=== PATIENT | male | born 1970 | race African-American/Black ===

== ENCOUNTER 2020-11-16 09:14 | Outpatient (REF) | payer OTHER, SELFPAY ==
[2020-11-16 11:41] LABS: Imm Gran Abs Auto 0.01 X10*3/uL (0.00-0.03); Imm Gran Pct Auto 0.2 % (0.0-0.4); MANUAL DIFF FLAG SCAN; PLT CLUMP 1; Red Cell Distribution Width 14.6 % (11.0-16.0); SCAN SMEAR FLAG 1
[2020-11-16 11:43] LABS: Basophils Absolute Auto 0.1 X10*3/uL (0.0-0.2); Basophils Percent Auto 2.4 % (0-2); Eosinophils Absolute Auto 0.2 X10*3/uL (0.0-0.4); Eosinophils Percent Auto 3.9 % (0-4); Hematocrit 41.4 % (42-52); Hemoglobin 13.8 g/dl (14.0-18.0); Lymphocytes Absolute Auto 2.2 X10*3/uL (1.2-4.9); Lymphocytes Percent Auto 47.2 % (20-40); Mean Corpuscular HGB Conc 33.3 g/dl (31.0-36.0); Mean Platelet Volume 9.9 fL (9.4-12.4); Monocytes Absolute Auto 0.6 X10*3/uL (0.1-1.2); Monocytes Percent Auto 12.9 % (2-11); Neutrophils Absolute Auto 1.6 X10*3/uL (2.0-8.3); Neutrophils Percent Auto 33.4 % (45-73); Platelet Count 135 X10*3/uL (160-400); Red Blood Count 4.18 X10*6/uL (4.60-5.80); White Blood Count 4.7 X10*3/uL (4.8-10.8)
[2020-11-16 12:06] LABS: Alanine Aminotransferase 41 U/L (0-40); Albumin Level 4.1 g/dL (3.5-5.0); Alkaline Phosphatase 199 U/L (39-117); Anion Gap 13 (12-20); Aspartate Amino Transferase 148 U/L (5-37); Bilirubin Direct 0.6 mg/dL (0.0-0.5); Bilirubin Total 0.8 mg/dL (0.0-1.0); Blood Urea Nitrogen 5 mg/dL (9-16); Calcium 9.3 mg/dL (8.4-10.2); Carbon Dioxide 34 mmol/L (22-29); Chloride 101 mmol/L (96-108); Cholesterol 209 mg/dL; Estimated Glomerular Filt Rate > 60; Glucose Fasting 110 mg/dL (60-99); HDL Cholesterol 44 mg/dL; LDL Cholesterol Calculated 137 mg/dl; Potassium 4.2 mmol/l (3.3-5.1); Sodium 144 mmol/L (135-145); Total Protein 8.9 g/dL (6.5-8.0); Triglycerides 140 mg/dL
[2020-11-16 12:26] LABS: TSH reflex Free T4 3.41 mIU/mL (0.32-4.0)
== END 2020-11-16 09:15 | disposition home or self-care (01) ==
LOC: HO.HMGCLDS 09:14
PROVIDERS: Visit Provider Internal Medicine
DX: Z00.01 Encounter for general adult medical examination with abnormal findings (principal); R03.0 Elevated blood-pressure reading, without diagnosis of hypertension; H93.19 Tinnitus, unspecified ear; F41.1 Generalized anxiety disorder; G47.9 Sleep disorder, unspecified
CPT/HCPCS: 36415; 80048; 80061; 80076; 84443; 85025

== ENCOUNTER 2021-02-09 02:43 | Emergency (ER) | payer OTHER, SELFPAY ==
[2021-02-09 02:54] VITALS: BP 131/86; PULSE 90; RESP 16; TEMP 37.1; O2SAT 96; BMI 25.5
--- NOTE | 2021-02-09 04:34 | ECG_ITS ---
Test Reason : ANXIETY Blood Pressure : / mmHG Vent. Rate : 077 BPM Atrial Rate : 077 BPM P-R Int : 190 ms QRS Dur : 098 ms QT Int : 434 ms P-R-T Axes : 045 -12 001 degrees QTc Int : 491 ms Normal sinus rhythm Septal infarct , age undetermined Inferior infarct , age undetermined Abnormal ECG No previous ECGs available Referred By: Joyce Salinas Electronically Signed By:STIVEN RESTREPO MD
--- NOTE | 2021-02-09 04:37 | ED.GENADULT ---
HPI - General Adult General Chief complaint: Anxiety Stated complaint: Panic attack Time Seen by Provider: 02/09/21 04:34 History of Present Illness HPI narrative: Patient is a 50-year-old male with a sudden Amina wanting to destroy things. Denies any suicidal homicidal ideation. Denies any chest pain. No cough no congestion or upper respiratory symptoms. No diaphoresis. No change in weight. Patient a lot of stressors in life. Patient denies any recreational drug use. Has a previous history of alcohol abuse. Patient claims to stop. His complained that he swallow Listerine when he rinses his mouth. There has been no change in sleep. Patient has been losing weight. No diaphoresis Related Data Home Medications Medication Instructions Recorded Confirmed diphenhydramine HCl 25 mg capsule 25 mg PO BEDTIME 11/16/20 Previous Rx's Medication Instructions Recorded lorazepam [Ativan] 1 mg PO TID PRN #7 tab 02/09/21 ondansetron 4 mg PO TID PRN 5 Days #10 tab 02/09/21 Allergies Allergy/AdvReac Type Severity Reaction Status Date / Time bee pollen [BEE POLLEN] Allergy Unknown ANAPHYLAXIS Verified 02/09/21 02:53 Review of Systems Review of Systems: Constitutional: No Weight loss, No Fever, No Chills, No Night Sweats, No Fatigue, No Malaise ENT/Mouth: No Hearing loss, No Ear Pain, No Nasal Congestion, No Sinus Pain, No Hoarseness, No sore throat, No Rhinorrhea, No Swallowing Difficulty Eyes: No Eye Pain, No Swelling, No Redness, No Foreign Body, No Discharge, No Vision Changes Cardiovascular: Positive shortness of breath Respiratory: No Cough, No Sputum, No Wheezing, No Smoke Exposure, No Dyspnea Gastrointestinal: No Nausea, No Vomiting, No Diarrhea, No Constipation, No abdominal Pain, No Hematochezia, No Melena Genitourinary: no irregular bleeding, No Dysuria, No Urinary Frequency, No Hematuria, No Urinary Incontinence, No Urgency, No Flank Pain, No Urinary Flow Changes, No Hesitancy Musculoskeletal: No joint pain, No Myalgias, No Joint Swelling Skin: No Skin Lesions, No rash Neuro: No Weakness, No Numbness, No Paresthesias, No Loss of Consciousness, No Dizziness, No Headache Psych: No Anxiety/Panic, No Depression, No SI/HI/AH/VH, No Social Issues, Heme/Lymph: No Bruising, No Bleeding,No Lymphadenopathy Endocrine: No Polyuria, No Polydipsia, No Temperature Intolerance [facility] Past Medical History Attestation statement: The following information was validated with the patient. Medical History Anxiety, generalized Difficulty sleeping Encounter for general adult medical examination with abnormal findings Meningitis spinal Prehypertension Tinnitus Family History Family History Brother Heart attack Social History Social History Alcohol intake: current Alcohol intake frequency: a few times a month Advance Directives: No Physical Exam Vital Signs: Vital Signs: Last Vital Signs Temp 98.7 F 02/09/21 02:54 Pulse 90 02/09/21 02:54 Resp 16 02/09/21 02:54 BP 131/86 02/09/21 02:54 Pulse Ox 96 02/09/21 02:54 Body Mass Index 25.5 Appearance: Alert. Oriented X3. No acute distress. Eyes: Pupils equal, round and reactive to light. ENT: Pharynx normal. Neck: Normal inspection. Neck supple. No lymph nodes noted. No crepitus CVS: Normal heart rate and rhythm. Pulses normal. Normal S1 and S2 Respiratory: No respiratory distress. Breath sounds normal. No Wheezing. No rales Abdomen: Soft and nontender. No rigidity. No distention. good BS x4 Skin: Skin warm and dry. Normal skin color. Normal skin turgor. Extremities: No lower extremity edema. Neurovascular intact to all extremities. No Lacerations. No Rash Neuro: Oriented X 3. No motor deficit. No sensory deficit. Moving all extermities. No slurred speech Medical Decision Making MDM Narrative Medical decision making narrative: Labs was sent on patient. Patient's ETOH came back at 366. Likely the cause of patient change in behavior and also smell of Listerine. Patient states he wants detox and he wants to go home with family. A list of detox will be provided to him. Zofran for nausea. Ativan for withdrawal symptoms. Patient is currently in stable condition. Family will take him home. Patient's liver enzymes are elevated. Likely related to alcohol as well. Patient most likely has a long history of alcohol use. Lab Data Result diagrams: 02/09/21 04:54 02/09/21 04:54 Labs: Lab Results 02/09/21 02/09/21 02/09/21 Range/Units 04:54 04:54 04:54 WBC 5.1 (4.8-10.8) X10*3/uL RBC 4.25 L (4.60-5.80) X10*6/uL Hgb 14.0 (14.0-18.0) g/dl Hct 41.6 L (42-52) % MCV 97.9 (80-98) fL MCH 32.9 (27.0-33.0) pg MCHC 33.7 (31.0-36.0) g/dl RDW 15.8 (11.0-16.0) % Plt Count 81 L D (160-400) X10*3/uL MPV 10.3 (9.4-12.4) fL Immature Gran % (Auto) 0.0 (0.0-0.4) % Neut % (Auto) 41.1 L (45-73) % Lymph % (Auto) 47.1 H (20-40) % [place] % (Auto) 8.8 (2-11) % Eos % (Auto) 0.8 (0-4) % Baso % (Auto) 2.2 H (0-2) % Lymph # (Auto) 2.4 (1.2-4.9) X10*3/uL [place] # (Auto) 0.5 (0.1-1.2) X10*3/uL Eos # (Auto) 0.0 (0.0-0.4) X10*3/uL Baso # (Auto) 0.1 (0.0-0.2) X10*3/uL Abs Immat Gran (auto) 0.00 (0.00-0.03) X10*3/uL Absolute Neuts (auto) 2.1 (2.0-8.3) X10*3/uL Absolute Nucleated RBC 0.000 (0.0-0.012) X10*3/uL Nucleated RBC % (auto) 0.0 (0.0-0.2) /100WBC PT 17.7 H (10.8-13.0) SEC INR 1.5 H (0.9-1.1) Sodium 146 H (135-145) mmol/L Potassium 3.4 (3.3-5.1) mmol/L Chloride 105 (96-108) mmol/L Carbon Dioxide 26 (22-29) mmol/L Anion Gap 18 (12-20) BUN 8 L D (9-16) mg/dL Creatinine 0.80 (0.5-1.4) mg/dL Estim Creat Clear Calc 114.0 Estimated GFR > 60 Random Glucose 99 (60-115) mg/dL Calcium 8.7 D (8.4-10.2) mg/dL Total Bilirubin 1.2 H (0.0-1.0) mg/dL Direct Bilirubin 0.8 H (0.0-0.5) mg/dL AST 201 H (5-37) U/L ALT 46 H (0-40) U/L Alkaline Phosphatase 173 H (39-117) U/L Total Protein 8.7 H (6.5-8.0) g/dL Albumin 3.8 (3.5-5.0) g/dL TSH 2.50 (0.32-4.0) uIU/mL Urine Opiates Screen (Not Detect) Ur Barbiturates Screen (Not Detect) Ur Phencyclidine Scrn (Not Detect) Ur Amphetamines Screen (Not Detect) U Benzodiazepines Scrn (Not Detect) Urine Cocaine Screen (Not Detect) U Marijuana (THC) Screen (Not Detect) Ethyl Alcohol mg/dL 02/09/21 02/09/21 Range/Units 04:54 05:10 WBC (4.8-10.8) X10*3/uL RBC (4.60-5.80) X10*6/uL Hgb (14.0-18.0) g/dl Hct (42-52) % MCV (80-98) fL MCH (27.0-33.0) pg MCHC (31.0-36.0) g/dl RDW (11.0-16.0) % Plt Count (160-400) X10*3/uL MPV (9.4-12.4) fL Immature Gran % (Auto) (0.0-0.4) % Neut % (Auto) (45-73) % Lymph % (Auto) (20-40) % [place] % (Auto) (2-11) % Eos % (Auto) (0-4) % Baso % (Auto) (0-2) % Lymph # (Auto) (1.2-4.9) X10*3/uL [place] # (Auto) (0.1-1.2) X10*3/uL Eos # (Auto) (0.0-0.4) X10*3/uL Baso # (Auto) (0.0-0.2) X10*3/uL Abs Immat Gran (auto) (0.00-0.03) X10*3/uL Absolute Neuts (auto) (2.0-8.3) X10*3/uL Absolute Nucleated RBC (0.0-0.012) X10*3/uL Nucleated RBC % (auto) (0.0-0.2) /100WBC PT (10.8-13.0) SEC INR (0.9-1.1) Sodium (135-145) mmol/L Potassium (3.3-5.1) mmol/L Chloride (96-108) mmol/L Carbon Dioxide (22-29) mmol/L Anion Gap (12-20) BUN (9-16) mg/dL Creatinine (0.5-1.4) mg/dL Estim Creat Clear Calc Estimated GFR Random Glucose (60-115) mg/dL Calcium (8.4-10.2) mg/dL Total Bilirubin (0.0-1.0) mg/dL Direct Bilirubin (0.0-0.5) mg/dL AST (5-37) U/L ALT (0-40) U/L Alkaline Phosphatase (39-117) U/L Total Protein (6.5-8.0) g/dL Albumin (3.5-5.0) g/dL TSH (0.32-4.0) uIU/mL Urine Opiates Screen Not Detected (Not Detect) Ur Barbiturates Screen Not Detected (Not Detect) Ur Phencyclidine Scrn Not Detected (Not Detect) Ur Amphetamines Screen Not Detected (Not Detect) U Benzodiazepines Scrn Not Detected (Not Detect) Urine Cocaine Screen Not Detected (Not Detect) U Marijuana (THC) Screen Not Detected (Not Detect) Ethyl Alcohol 366 H* mg/dL Discharge Plan Discharge Clinical Impression: Alcohol intoxication Patient Disposition: Home, Self-Care Instructions: Alcohol Intoxication (ED) Prescriptions: New ondansetron 4 mg tablet,disintegrating 4 mg PO TID PRN (Reason: nausea and vomiting) 5 Days Qty: 10 RF: 0 lorazepam [Ativan] 1 mg tablet 1 mg PO TID PRN (Reason: alcohol withdrawal) Qty: 7 RF: 0 No Action diphenhydramine HCl [ZzzQuil] 25 mg capsule 25 mg PO BEDTIME RF: 0 Referrals: Physician,Unknown [Primary Care Provider] - 2 days (Please go to detox as soon as possible a list of detox will be provided to you.)
[2021-02-09 04:59] LABS: MANUAL DIFF FLAG NO; Neutrophils Absolute Auto 2.1 X10*3/uL (2.0-8.3); PLT CLUMP 1; SCAN SMEAR FLAG 1
[2021-02-09 05:01] LABS: Basophils Absolute Auto 0.1 X10*3/uL (0.0-0.2); Basophils Percent Auto 2.2 % (0-2); Eosinophils Percent Auto 0.8 % (0-4); Hematocrit 41.6 % (42-52); Lymphocytes Absolute Auto 2.4 X10*3/uL (1.2-4.9); Lymphocytes Percent Auto 47.1 % (20-40); Mean Corpuscular HGB Conc 33.7 g/dl (31.0-36.0); Mean Corpuscular Hemoglobin 32.9 pg (27.0-33.0); Mean Corpuscular Volume 97.9 fL (80-98); Mean Platelet Volume 10.3 fL (9.4-12.4); Monocytes Absolute Auto 0.5 X10*3/uL (0.1-1.2); Monocytes Percent Auto 8.8 % (2-11); Neutrophils Percent Auto 41.1 % (45-73); Red Blood Count 4.25 X10*6/uL (4.60-5.80); Red Cell Distribution Width 15.8 % (11.0-16.0); White Blood Count 5.1 X10*3/uL (4.8-10.8)
[2021-02-09 05:03] LABS: Platelet Count 81 X10*3/uL (160-400)
[2021-02-09 05:04] LABS: INTERNATIONAL NORM RATIO 1.5 (0.9-1.1); Prothrombin Time 17.7 SEC (10.8-13.0)
[2021-02-09 05:34] LABS: Ethanol 366 mg/dL
[2021-02-09 05:38] LABS: Alanine Aminotransferase 46 U/L (0-40); Albumin Level 3.8 g/dL (3.5-5.0); Alkaline Phosphatase 173 U/L (39-117); Anion Gap 18 (12-20); Aspartate Amino Transferase 201 U/L (5-37); Bilirubin Direct 0.8 mg/dL (0.0-0.5); Bilirubin Total 1.2 mg/dL (0.0-1.0); Blood Urea Nitrogen 8 mg/dL (9-16); Calcium 8.7 mg/dL (8.4-10.2); Carbon Dioxide 26 mmol/L (22-29); Chloride 105 mmol/L (96-108); Estimated Glomerular Filt Rate > 60; Glucose Random 99 mg/dL (60-115); Potassium 3.4 mmol/L (3.3-5.1); Sodium 146 mmol/L (135-145); Total Protein 8.7 g/dL (6.5-8.0)
[2021-02-09] MEDS: 0.9 % Sodium Chloride 1,000 ML 999 ML IV (05:52)
[2021-02-09 05:56] LABS: Amphetamine Screen Urine Not Detected (Not Detect); Barbiturates, Urine Not Detected (Not Detect); Benzodiazepines Screen Urine Not Detected (Not Detect); Cannabinoid Screen Urine Not Detected (Not Detect); Cocaine Screen Urine Not Detected (Not Detect); Opiate Screen Urine Not Detected (Not Detect); Phencyclidine Screen Urine Not Detected (Not Detect)
[2021-02-09 06:37] VITALS: BP 139/93; PULSE 75; RESP 16; O2SAT 95
== END 2021-02-09 06:59 | disposition home or self-care (01) ==
PROVIDERS: Emergency Provider Emergency Medicine Emergency Medical Services
DX: F10.120 Alcohol abuse with intoxication, uncomplicated (principal); Y90.8 Blood alcohol level of 240 mg/100 ml or more; F41.9 Anxiety disorder, unspecified
CPT/HCPCS: 36415; 80048; 80076; 80307; 80320; 84443; 85025; 85610; 93005; 96360; 99283; 99284

== ENCOUNTER 2021-02-12 20:02 | Inpatient (IN) | payer OTHER, SELFPAY ==
--- NOTE | ~2021-02-12 | CT_ITS ---
EXAMINATION: CT ABDOMEN AND PELVIS WITH CONTRAST CLINICAL INFORMATION: Hematuria COMPARISON: None TECHNIQUE: Multidetector volumetric images were obtained from the superior aspect of the liver through the pubic symphysis following administration 85 mL of Omnipaque 350 intravenous contrast. Sagittal and coronal reformatted images were obtained on the technologist's workstation. Oral contrast: No This CT examination was performed using dose optimization techniques as appropriate, variously including the following: *Automated exposure control *Adjustment of mA and/or kV according to patient size (this includes techniques or standardized protocols for targeted exams where dose is matched to indication/reason for exam; i.e. extremities or head) *Use of iterative reconstruction technique DLP: 832 mGy-cm FINDINGS: LUNG BASES: Bibasilar dependent subsegmental atelectasis. LIVER, GALLBLADDER, AND BILIARY TREE: The liver is normal in size, shape, and attenuation. No focal hepatic lesion or biliary ductal dilatation is present. Gallbladder unremarkable. PANCREAS: Unremarkable. SPLEEN: Unremarkable. ADRENAL GLANDS: Unremarkable. KIDNEYS AND URETERS: The kidneys are normal in size, shape, and attenuation. No hydronephrosis, hydroureter, or calculi seen. No perinephric stranding. BLADDER: Unremarkable. GASTROINTESTINAL TRACT: There is submucosal edema and pericolic fat stranding involving the cecum and ascending colon. There is mild prominence of the appendix, particularly near the origin were measures up to 1.5 cm. ABDOMINAL WALL: No significant hernia is appreciated. LYMPH NODES: Normal. VASCULAR: Aorta is atherosclerotic but normal caliber. Patent venous structures. PELVIC VISCERA: Unremarkable. OSSEOUS STRUCTURES: No acute or suspicious osseous abnormalities. CT/CT abdomen pelvis w con IMPRESSION: There is submucosal edema and pericolic fat stranding involving the cecum and ascending colon suspicious for colitis. There is mild thickening of the appendix, particularly near the base favored to be secondary to the cecal/colonic inflammation as opposed to representing appendicitis.
--- NOTE | ~2021-02-12 | CT_ITS ---
EXAMINATION: CT HEAD WITHOUT CONTRAST CLINICAL INFORMATION: Altered mental status COMPARISON: None TECHNIQUE: Contiguous axial imaging was performed from the skull base to vertex without intravenous administration of contrast. This CT examination was performed using dose optimization techniques as appropriate, variously including the following: *Automated exposure control *Adjustment of mA and/or kV according to patient size (this includes techniques or standardized protocols for targeted exams where dose is matched to indication/reason for exam; i.e. extremities or head) *Use of iterative reconstruction technique DLP: 760 mGy-cm FINDINGS: There is no evidence of acute intracranial hemorrhage or territorial infarction. No abnormal mass effect or midline shift is seen. [place] to white matter differentiation is well preserved. No extra-axial fluid collections are identified. The ventricles are normal in size. There is no abnormal attenuation within the brain parenchyma. The osseous structures and soft tissues are normal. Mild mucosal thickening present throughout the ethmoid air cells. Chronic appearing partially imaged right nasal bone fractures. CT/CT head/brain wo con IMPRESSION: No acute intracranial pathology.
[2021-02-12 20:10] VITALS: BP 116/82; BP 127/83; PULSE 112; PULSE 121; RESP 16; TEMP 37.6; O2SAT 97; O2SAT 99; BMI 26.4
[2021-02-12 20:29] VITALS: PULSE 112
--- NOTE | 2021-02-12 21:26 | PC.NURSE ---
Pt OOB, wandering around the ED, asking for Security to take him downtown also asking to be put in a holding cell . Pt then stating what kind of dare is this, I don't work in the medical field Pt fully clothed, took off tele leads, changed back over into heraclio and re-oriented to place. Awaiting primary eval at this time.
--- NOTE | 2021-02-12 21:57 | PC.NURSE ---
MD in to bedside for eval, plan for IV, labs, and fluids.
--- NOTE | 2021-02-12 21:58 | ED.MALEGU ---
HPI - Male Genitourinary General Chief complaint: Urogenital-Male Stated complaint: bleeding Time Seen by Provider: 02/12/21 21:44 Source: patient Mode of arrival: EMS History of Present Illness HPI Narrative: This is a 50-year-old male who is brought in by EMS from [place] where he is currently being treated for alcohol detox. His last drink was Monday and he received 2 mg of Ativan at [place] at 6:45 p.m.. Patient is a questionable historian stating that he has been out of the house for 2 nights as he and his like to play a game to keep things interesting where he stays out of the house for 4 nights and then she stays out of the house for 4 nights. Patient also states that he has had some visual hallucinations on . As for the blood in the urine patient states that it comes and goes but today there is obvious red blood coming from his penis. Otherwise, he denies any urinary pain/burning/frequency and denies any shortness of breath or chest pain/palpitations. Related Data Home Medications Medication Instructions Recorded Confirmed diphenhydramine HCl 25 mg capsule 25 mg PO BEDTIME 11/16/20 Previous Rx's Medication Instructions Recorded lorazepam [Ativan] 1 mg PO TID PRN 3 Days #7 tab 02/09/21 ondansetron 4 mg PO TID PRN 5 Days #10 tab 02/09/21 Allergies Allergy/AdvReac Type Severity Reaction Status Date / Time bee pollen [BEE POLLEN] Allergy Unknown ANAPHYLAXIS Verified 02/09/21 02:53 Review of Systems Review of Systems: Pertinent positives and negatives as stated in HPI 10 point review of systems is otherwise negative. [facility] Past Medical History Source: nursing notes reviewed Medical History Anxiety, generalized Difficulty sleeping Encounter for general adult medical examination with abnormal findings Meningitis spinal Prehypertension Tinnitus Family History Family History Brother Heart attack Social History Social History Alcohol intake: current Alcohol intake frequency: a few times a month Advance Directives: No Advance Directives Information Provided: Yes Physical Exam Vital Signs: Vital Signs: Last Vital Signs Temp 99.7 F 02/12/21 20:10 Pulse 93 02/13/21 04:28 Resp 18 02/13/21 04:28 BP 129/81 02/13/21 04:28 Pulse Ox 99 02/13/21 04:28 Body Mass Index 26.4 VITAL SIGNS: Reviewed. GENERAL: Well developed, well nourished, in no acute distress. HEAD: Normocephalic/atraumatic, EYES: PERRLA, EOMI intact without pain, no nystagmus EARS: Ext canals without abnormality OROPHARYNX: no oral lesions noted, posterior pharynx clear NECK: Supple, no adenopathy LUNGS: Normal breath sounds. SpO2<97> CARDIOVASCULAR: Regular rate and rhythm without noted murmurs ABDOMEN: Soft, non-tender, non-distended with bowel sounds. NEUROLOGIC: Alert and oriented x 4. Strength and sensation to light touch were grossly intact x 4, bilateral tremulousness in upper extremities secondary to alcohol detox. Course Course Course Narrative: This is a 50-year-old male with history and clinical presentation consistent with alcohol detox and will evaluate for hematuria but likely patient will be referred for further evaluation by Urology. Throughout patient's course he was clearly altered, easily agitated and had to be treated with multiple rounds of Ativan and Librium. Review of all investigations without acute findings to suggest infectious etiology and evaluation of hematuria it does demonstrate mild hematuria with RBCs less than 100. CT scan of the head does not show any acute findings and CT scan of the abdomen pelvis for further evaluation of kidneys and bladder demonstrates incidental finding of colitis. Case discussed with inpatient hospitalist who is agreeable for admission for alcohol withdrawal. MDM - Male Genitourinary Lab Data Result diagrams: 02/12/21 22:13 02/12/21 22:13 Labs: Lab Results 02/12/21 02/12/21 02/12/21 Range/Units 22:13 22:13 23:17 WBC 5.8 (4.8-10.8) X10*3/uL RBC 4.26 L (4.60-5.80) X10*6/uL Hgb 14.2 (14.0-18.0) g/dl Hct 41.0 L (42-52) % MCV 96.2 (80-98) fL MCH 33.3 H (27.0-33.0) pg MCHC 34.6 (31.0-36.0) g/dl RDW 14.4 (11.0-16.0) % Plt Count 62 L (160-400) X10*3/uL MPV 11.7 (9.4-12.4) fL Immature Gran % (Auto) 0.2 (0.0-0.4) % Neut % (Auto) 59.7 (45-73) % Lymph % (Auto) 24.1 (20-40) % [place] % (Auto) 14.8 H (2-11) % Eos % (Auto) 0.5 (0-4) % Baso % (Auto) 0.7 (0-2) % Lymph # (Auto) 1.4 (1.2-4.9) X10*3/uL [place] # (Auto) 0.9 (0.1-1.2) X10*3/uL Eos # (Auto) 0.0 (0.0-0.4) X10*3/uL Baso # (Auto) 0.0 (0.0-0.2) X10*3/uL Abs Immat Gran (auto) 0.01 (0.00-0.03) X10*3/uL Absolute Neuts (auto) 3.4 (2.0-8.3) X10*3/uL Absolute Nucleated RBC 0.000 (0.0-0.012) X10*3/uL Nucleated RBC % (auto) 0.0 (0.0-0.2) /100WBC Smear Tech's Comments VERIFIED Sodium 134 L (135-145) mmol/L Potassium 3.5 (3.3-5.1) mmol/L Chloride 92 L (96-108) mmol/L Carbon Dioxide 29 (22-29) mmol/L Anion Gap 17 (12-20) BUN 15 D (9-16) mg/dL Creatinine 1.04 (0.5-1.4) mg/dL Estim Creat Clear Calc 87.7 Estimated GFR > 60 Random Glucose 121 H (60-115) mg/dL Calcium 9.3 D (8.4-10.2) mg/dL Total Bilirubin 2.9 H (0.0-1.0) mg/dL AST 147 H (5-37) U/L ALT 41 H (0-40) U/L Alkaline Phosphatase 152 H (39-117) U/L Total Protein 9.0 H (6.5-8.0) g/dL Albumin 4.0 (3.5-5.0) g/dL Lipase 56 (8-78) U/L Urine Color YELLOW Urine Appearance CLEAR Urine pH 6.5 (5.0-8.0) Ur Specific [place] 1.010 (1.005-1.025) Urine Protein 1+ H (NEG-TRACE) MG/DL Urine Glucose (UA) NEG (NEG) MG/DL Urine Ketones NEG (NEG) MG/DL Urine Blood 3+ H (NEG) Urine Nitrite NEG (NEG) Ur Leukocyte Esterase TRACE H (NEG) Urine RBC 30-49 H (0) /HPF Urine WBC 1-4 (0-4) /HPF Ur Squamous Epith Cells NONE /LPF Urine Bacteria NONE /LPF Discharge Plan Discharge Clinical Impression: Alcohol withdrawal delirium, Hematuria, Colitis Patient Disposition: Admitted As Inpatient
[2021-02-12] MEDS: 0.9 % Sodium Chloride 2,000 ML 999 ML IV (22:18)
[2021-02-12] MEDS: chlordiazePOXIDE HCl 25 MG CAPSULE PO (22:19)
[2021-02-12 22:21] LABS: Hemoglobin 14.2 g/dl (14.0-18.0); Imm Gran Abs Auto 0.01 X10*3/uL (0.00-0.03); Imm Gran Pct Auto 0.2 % (0.0-0.4); MANUAL DIFF FLAG SCAN; PLT CLUMP 1; SCAN SMEAR FLAG 1
[2021-02-12 22:23] LABS: Basophils Percent Auto 0.7 % (0-2); Eosinophils Percent Auto 0.5 % (0-4); Lymphocytes Absolute Auto 1.4 X10*3/uL (1.2-4.9); Lymphocytes Percent Auto 24.1 % (20-40); Mean Corpuscular HGB Conc 34.6 g/dl (31.0-36.0); Mean Corpuscular Hemoglobin 33.3 pg (27.0-33.0); Mean Corpuscular Volume 96.2 fL (80-98); Mean Platelet Volume 11.7 fL (9.4-12.4); Monocytes Absolute Auto 0.9 X10*3/uL (0.1-1.2); Monocytes Percent Auto 14.8 % (2-11); Neutrophils Absolute Auto 3.4 X10*3/uL (2.0-8.3); Neutrophils Percent Auto 59.7 % (45-73); Red Blood Count 4.26 X10*6/uL (4.60-5.80); Red Cell Distribution Width 14.4 % (11.0-16.0); White Blood Count 5.8 X10*3/uL (4.8-10.8)
[2021-02-12 22:25] LABS: Platelet Count 62 X10*3/uL (160-400)
--- NOTE | 2021-02-12 22:26 | PC.NURSE ---
20g IV established to left forearm. Labs drawn and sent, pt medicated with 25 mg of librium. 7 on the CIWA scale. 1 of 2 liters of NS hung and running WO. Call gold provided to pt, this RN reinforced with pt to not get out of bed without assistance.
[2021-02-12 22:40] LABS: SLIDE REVIEW VERIFIED
[2021-02-12 23:01] LABS: Alanine Aminotransferase 41 U/L (0-40); Alkaline Phosphatase 152 U/L (39-117); Anion Gap 17 (12-20); Aspartate Amino Transferase 147 U/L (5-37); Bilirubin Total 2.9 mg/dL (0.0-1.0); Blood Urea Nitrogen 15 mg/dL (9-16); Calcium 9.3 mg/dL (8.4-10.2); Carbon Dioxide 29 mmol/L (22-29); Chloride 92 mmol/L (96-108); Creatinine Clr Calc Pharmacy 87.7; Estimated Glomerular Filt Rate > 60; Glucose Random 121 mg/dL (60-115); Potassium 3.5 mmol/L (3.3-5.1); Sodium 134 mmol/L (135-145)
[2021-02-12 23:04] VITALS: PULSE 93; O2SAT 99
[2021-02-12 23:34] LABS: Glucose Urine UA NEG (NEG); Leukocyte Esterase Urine TRACE (NEG); Nitrite Urine NEG (NEG); PH 6.5 (5.0-8.0); UACC Culture Trigger YES; Urine Blood 3+ (NEG); Urine Ketones NEG (NEG); Urine Protein 1+ MG/DL (NEG-TRACE)
[2021-02-12 23:36] LABS: Appearance Urine CLEAR; Color Urine YELLOW
[2021-02-12 23:37] LABS: Lipase 56 U/L (8-78)
[2021-02-12] MEDS: LORazepam 2 MG/ML VIAL 1 MG IVPUSH (23:39)
[2021-02-12 23:47] LABS: RBC Urine 30-49 /HPF (0)
[2021-02-13] VITALS (8 sets, daily range): BP systolic 117–150; BP diastolic 74–87; PULSE 65–93; RESP 16–20; TEMP 36.4–37; O2SAT 96–99
[2021-02-13] MEDS: LORazepam 2 MG/ML VIAL 1 MG IVPUSH (00:14)
--- NOTE | 2021-02-13 00:14 | PC.NURSE ---
This RN received report at 2300- prior nurse stated that the patient ripped out his IV and had been restless in the room, wanting to leave. This RN tried to reason with patient but was unable to, patient not alert and oriented to situation, unsteady on his feet and resistant to treatment. Multiple attempts by multiple staff were made to educate the patient and attempt to redirect him into the room but were not successful. Security called to the bedside and Ray MCCALLUM also at the bedside to attempt to deescalate the patients behavior. Patient still resistant to care despite being educated about the risks of alcohol withdrawal and the inability of the patient to make rational decisions and choices given his current state. Provider made aware and, given the patients reasoning for visit to the ER, recommending imaging with contrast so new IV to be placed. In addition to this, the ED provider ordered 1mg Ativan to help with the patients escalating behavior. New 20G IV placed in the patients left arm and 1mg Ativan administered. Patient was at this point moved to the hallway to be monitored by staff and security. Once again, the patient removed his IV and a new 20g was once again placed into this right ac with an additional 1mg Ativan administered. At this time, security is still at the bedside- patient requiring frequent redirection and still uncooperative with care. ED provider aware, awaiting imaging.
[2021-02-13] MEDS: LORazepam 2 MG/ML VIAL IVPUSH (01:42)
[2021-02-13] MEDS: iohexoL 350 MG/ML 100 ML INFUS..BTL 85 ML IV (04:16)
[2021-02-13 06:10] LABS: COVID-19 Test Negative (Negative)
--- NOTE | 2021-02-13 06:36 | PM.IMHP ---
History of Present Illness Date of Service: 02/13/21 Chief Complaint: Alcohol withdrawal This is a 50-year-old male with past medical history of alcohol abuse, anxiety, who presents to the hospital with complaints of alcohol withdrawal as well as hematuria. Patient was currently being managed for alcohol detox at [facility] but they sent him to the hospital due to hematuria. Patient was in active withdrawal in the hospital and patient was given Librium as well as multiple doses of Ativan. Patient currently very somnolent, arousable to painful stimuli but unable to give much history. According to ED physician patient's last drink was Monday, he has been experiencing visual hallucinations, he appears to be making up stories with the ED physician, and there is concern for Wernicke's encephalopathy I am unable to his other systems as patient is too somnolent to answer No significant abnormal vitals except for heart rate of 121. Has a temp of 99.7?, respiratory rate of 16, blood pressure 127/83, satting 97% on room air Labs are significant for WBC count of 5.8, hemoglobin of 14.2, hematocrit 41%, sodium of 134, potassium 3.5, total bili of 2.9, AST of 147, ALT of 41, alk-phos of 152, total protein of 9.0, UA positive for blood as well as leukocyte Estrace and some WBC, Head CT demonstrates no acute intracranial pathology Abdominal CT shows submucosal edema and [place] colic fat stranding involving the cecum and ascending colon suspicious for colitis. Mild thickening of the appendix fever to be secondary to the cecal colonic inflammation as opposed to representing appendicitis Past medical history as EMR Review of Systems Review of Systems: Yes Unobtainable due to mental status [facility] Medical History Anxiety, generalized Difficulty sleeping Encounter for general adult medical examination with abnormal findings Meningitis spinal Prehypertension Tinnitus Family History Brother Heart attack Social History Alcohol intake: current Alcohol intake frequency: a few times a month Advance Directives: No Advance Directives Information Provided: Yes Meds Allergies Allergy/AdvReac Type Severity Reaction Status Date / Time bee pollen [BEE POLLEN] Allergy Unknown ANAPHYLAXIS Verified 02/09/21 02:53 Home Medications Medication Instructions Recorded Confirmed Last Taken Type diphenhydramine HCl 25 mg capsule 25 mg PO BEDTIME 11/16/20 Unknown History Physical Exam Vital Signs and Narrative: Vital Signs: Last Vital Signs Temp 99.7 F 02/12/21 20:10 Pulse 93 02/13/21 04:28 Resp 18 02/13/21 04:28 BP 129/81 02/13/21 04:28 Pulse Ox 99 02/13/21 04:28 Body Mass Index 26.4 Const: General: patient obtunded Orientation/consciousness: patient obtunded Eyes: General: appearance normal, both eyes and all related structures Resp: Effort & Inspection: normal respiratory effort Cardio: Rate: regular rate Rhythm: regular rhythm GI: Palpation (GI): Soft to palpation Auscultation: normal bowel sounds Skin: General skin exam: no rashes or lesions noted Neuro: General: patient obtunded Cognition (Neuro): normal cognition Extrem: General: Yes normal to inspection and Yes no pedal edema Results Labs CBC and Chem 7: 02/12/21 22:13 02/12/21 22:13 Labs: Laboratory Results - last 24 hr 02/12/21 02/12/21 02/12/21 22:13 22:13 23:17 MCV 96.2 MCH 33.3 H MCHC 34.6 RDW 14.4 Plt Count 62 L MPV 11.7 Immature Gran % (Auto) 0.2 Neut % (Auto) 59.7 Lymph % (Auto) 24.1 [place] % (Auto) 14.8 H Eos % (Auto) 0.5 Baso % (Auto) 0.7 Lymph # (Auto) 1.4 [place] # (Auto) 0.9 Eos # (Auto) 0.0 Baso # (Auto) 0.0 Abs Immat Gran (auto) 0.01 Absolute Neuts (auto) 3.4 Absolute Nucleated RBC 0.000 Nucleated RBC % (auto) 0.0 Smear Tech's Comments VERIFIED Anion Gap 17 Estim Creat Clear Calc 87.7 Estimated GFR > 60 Random Glucose 121 H Calcium 9.3 D Total Bilirubin 2.9 H AST 147 H ALT 41 H Alkaline Phosphatase 152 H Total Protein 9.0 H Albumin 4.0 Lipase 56 Urine Color YELLOW Urine Appearance CLEAR Urine pH 6.5 Ur Specific [place] 1.010 Urine Protein 1+ H Urine Glucose (UA) NEG Urine Ketones NEG Urine Blood 3+ H Urine Nitrite NEG Ur Leukocyte Esterase TRACE H Urine RBC 30-49 H Urine WBC 1-4 Ur Squamous Epith Cells NONE Urine Bacteria NONE COVID-19 (ERIKA) COVID-19 Clin Com 02/13/21 05:48 MCV MCH MCHC RDW Plt Count MPV Immature Gran % (Auto) Neut % (Auto) Lymph % (Auto) [place] % (Auto) Eos % (Auto) Baso % (Auto) Lymph # (Auto) [place] # (Auto) Eos # (Auto) Baso # (Auto) Abs Immat Gran (auto) Absolute Neuts (auto) Absolute Nucleated RBC Nucleated RBC % (auto) Smear Tech's Comments Anion Gap Estim Creat Clear Calc Estimated GFR Random Glucose Calcium Total Bilirubin AST ALT Alkaline Phosphatase Total Protein Albumin Lipase Urine Color Urine Appearance Urine pH Ur Specific [place] Urine Protein Urine Glucose (UA) Urine Ketones Urine Blood Urine Nitrite Ur Leukocyte Esterase Urine RBC Urine WBC Ur Squamous Epith Cells Urine Bacteria COVID-19 (ERIKA) Negative COVID-19 Clin Com See Note Imaging Radiologist's Impressions: Impressions Abdomen/Pelvis CT 02/13/21 00:05 IMPRESSION: There is submucosal edema and pericolic fat stranding involving the cecum and ascending colon suspicious for colitis. There is mild thickening of the appendix, particularly near the base favored to be secondary to the cecal/colonic inflammation as opposed to representing appendicitis. Head CT 02/13/21 03:14 IMPRESSION: No acute intracranial pathology. Assessment and Plan (1) Alcohol withdrawal delirium: Status: Acute (2) Hematuria: Status: Acute (3) Colitis: Status: Acute (4) UTI (urinary tract infection): Status: Acute 50-year-old male with past medical history of alcohol abuse, presents to the hospital in alcohol withdrawal as well as complaints of hematuria # alcohol abuse with withdrawal - patient active withdrawal, hallucinating, possible component of Wernicke encephalopathy - will start patient on phenobarb protocol - out of abundance of precaution will start him on thiamine 500 mg IV - folic acid supplement - monitor mental status # hematuria - likely secondary to UTI - stable H&H - will consult Urology # UTI - has leukocyte Estrace as well as some WBC - will start him on IV antibiotics - follow cultures # colitis - nontoxic, afebrile, no leukocytosis - ceftriaxone for a TIA should cover if bacteria DVT prophylaxis: early mbulation in the settin gof hematuria
[2021-02-13] MEDS: 0.9 % Sodium Chloride 1,000 ML 100 ML IVCONT ×2 (08:30→19:50)
[2021-02-13] MEDS: 0.9 % Sodium Chloride Flush 3 ML SYRINGE IVFLUSH (08:30)
--- NOTE | 2021-02-13 08:31 | PC.NURSE ---
senior director insight This RN attempting to reach MD to inquire about bld cx prior to Rocephin ordered, Pt asleep. NS at 100ml/hr started. NSR on tele
[2021-02-13] MEDS: cefTRIAXone sodium 1 GM in 0.9 % Sodium Chloride 50 ML IV (10:02)
[2021-02-13] MEDS: PHENobarbitaL sodium 130 MG/ML VIAL 290 MG IM (10:09)
--- NOTE | 2021-02-13 10:15 | PC.NURSE ---
Blooc cultures drawn as well as BMP. Pt is calm and cooperative. Given IM phenobarbitol to right thigh. IV abx running. Pt was cleaned and changed into dry clothes at 0900 after spilling urine from the urinal in the bed.
[2021-02-13] MEDS: Thiamine HCL 500 MG in 0.9 % Sodium Chloride 100 ML 210 MG IV ×2 (10:19→17:17)
[2021-02-13 10:28] LABS: Anion Gap 16 (12-20); Blood Urea Nitrogen 13 mg/dL (9-16); Calcium 8.7 mg/dL (8.4-10.2); Carbon Dioxide 26 mmol/L (22-29); Chloride 97 mmol/L (96-108); Creatinine Clr Calc Pharmacy 118.5; Estimated Glomerular Filt Rate > 60; Glucose Random 89 mg/dL (60-115); Potassium 3.3 mmol/L (3.3-5.1); Sodium 136 mmol/L (135-145)
[2021-02-13] MEDS: metroNIDAZOLE/NS 500 MG/100 ML PIGGYBACK 100 MG IV ×2 (11:50→17:54)
[2021-02-13] MEDS: PHENobarbitaL sodium 130 MG/ML VIAL 215 MG IM ×2 (13:13→15:54)
--- NOTE | 2021-02-13 13:33 | P.PNIM_ITS ---
Subjective Subjective Date of Service: 02/13/21 Interval History: somnolent but awakens easily denies pain intermittent dysuria Physical Exam Vital Signs: Vital Signs: Last Vital Signs Temp 98.2 F 02/13/21 11:54 Pulse 73 02/13/21 11:54 Resp 18 02/13/21 11:54 BP 117/75 02/13/21 11:54 Pulse Ox 96 02/13/21 11:54 Body Mass Index 26.4 Gen: in no acute distress HEENT: sclera anicteric, moist mucus membranes Neck: supple Lungs: clear to auscultation bilaterally Heart: regular rate and rhythm, no murmurs Abd: soft, non-tender, non-distended Ext: no edema Skin: warm/well-perfused Neuro: alert and oriented x3, no focal findings Psych: appropriate affect Objective Data Current Medications Generic Name Dose Route Start Last Admin Trade Name Freq PRN Reason Stop Dose Admin Acetaminophen 650 mg 02/13/21 08:03 Acetaminophen 325 Mg Tablet PO Q6H PRN Pain, Mild (Pain Scale 1-3) Docusate Sodium 100 mg 02/13/21 08:03 Docusate Sodium 100 Mg Capsule PO DAILY PRN Constipation Folic Acid 1 mg 02/13/21 09:00 02/13/21 11:50 Folic Acid 1 Mg/0.2 Ml Syringe IVPUSH 1 mg DAILY KAYLA Administration Ceftriaxone Sodium 1 gm/ 50 mls @ 100 mls/hr 02/13/21 06:45 02/13/21 11:53 Sodium Chloride IV Infused Q24H KAYLA Infusion Sodium Chloride 1,000 mls @ 100 mls/hr 02/13/21 08:03 02/13/21 08:30 Ns IVCONT 100 mls/hr .Q10H KAYLA Administration Thiamine HCl 500 mg/ Sodium 105 mls @ 210 mls/hr 02/13/21 09:00 02/13/21 11:52 Chloride IV Infused Q8H KAYLA Infusion Metronidazole 500 mg in 100 mls @ 100 mls/hr 02/13/21 09:00 02/13/21 13:14 Flagyl IV Infused Q8H KAYLA Infusion Medication 1 each 02/13/21 09:00 No Benzodiazepines MISCELLANE DAILY KAYLA Ondansetron HCl 4 mg 02/13/21 08:03 Ondansetron Hcl 4 Mg/2 Ml Vial IVPUSH Q8H PRN Nausea and Vomiting Phenobarbital 45 mg 02/14/21 09:00 Phenobarbital 15 Mg Tablet PO 02/15/21 21:01 BID [facility] Phenobarbital 15 mg 02/16/21 09:00 Phenobarbital 15 Mg Tablet PO 02/17/21 21:01 BID [facility] Phenobarbital 15 mg 02/18/21 09:00 Phenobarbital 15 Mg Tablet PO 02/19/21 09:01 DAILY [facility] Phenobarbital Sodium 215 mg 02/13/21 12:00 02/13/21 13:13 Phenobarbital Sodium 130 Mg/Ml Vial IM 02/13/21 15:01 215 mg Q3H [facility] Administration Sodium Chloride 3 ml 02/13/21 08:03 02/13/21 08:30 0.9 % Sodium Chloride Flush 3 Ml Syringe IVFLUSH 3 ml QSHIFT [facility] Administration Labs CBC & Chem 7: 02/12/21 22:13 02/13/21 09:50 Labs: Laboratory Results - last 24 hr 02/12/21 02/12/21 02/12/21 22:13 22:13 23:17 WBC 5.8 RBC 4.26 L Hgb 14.2 Hct 41.0 L MCV 96.2 MCH 33.3 H MCHC 34.6 RDW 14.4 Plt Count 62 L MPV 11.7 Immature Gran % (Auto) 0.2 Neut % (Auto) 59.7 Lymph % (Auto) 24.1 [place] % (Auto) 14.8 H Eos % (Auto) 0.5 Baso % (Auto) 0.7 Lymph # (Auto) 1.4 [place] # (Auto) 0.9 Eos # (Auto) 0.0 Baso # (Auto) 0.0 Abs Immat Gran (auto) 0.01 Absolute Neuts (auto) 3.4 Absolute Nucleated RBC 0.000 Nucleated RBC % (auto) 0.0 Smear Tech's Comments VERIFIED Sodium 134 L Potassium 3.5 Chloride 92 L Carbon Dioxide 29 Anion Gap 17 BUN 15 D Creatinine 1.04 Estim Creat Clear Calc 87.7 Estimated GFR > 60 Random Glucose 121 H Calcium 9.3 D Total Bilirubin 2.9 H AST 147 H ALT 41 H Alkaline Phosphatase 152 H Total Protein 9.0 H Albumin 4.0 Lipase 56 Urine Color YELLOW Urine Appearance CLEAR Urine pH 6.5 Ur Specific [place] 1.010 Urine Protein 1+ H Urine Glucose (UA) NEG Urine Ketones NEG Urine Blood 3+ H Urine Nitrite NEG Ur Leukocyte Esterase TRACE H Urine RBC 30-49 H Urine WBC 1-4 Ur Squamous Epith Cells NONE Urine Bacteria NONE COVID-19 (ERIKA) COVID-19 Clin Com 02/13/21 02/13/21 05:48 09:50 WBC RBC Hgb Hct MCV MCH MCHC RDW Plt Count MPV Immature Gran % (Auto) Neut % (Auto) Lymph % (Auto) [place] % (Auto) Eos % (Auto) Baso % (Auto) Lymph # (Auto) [place] # (Auto) Eos # (Auto) Baso # (Auto) Abs Immat Gran (auto) Absolute Neuts (auto) Absolute Nucleated RBC Nucleated RBC % (auto) Smear Tech's Comments Sodium 136 Potassium 3.3 Chloride 97 Carbon Dioxide 26 Anion Gap 16 BUN 13 Creatinine 0.77 Estim Creat Clear Calc 118.5 Estimated GFR > 60 Random Glucose 89 Calcium 8.7 D Total Bilirubin AST ALT Alkaline Phosphatase Total Protein Albumin Lipase Urine Color Urine Appearance Urine pH Ur Specific [place] Urine Protein Urine Glucose (UA) Urine Ketones Urine Blood Urine Nitrite Ur Leukocyte Esterase Urine RBC Urine WBC Ur Squamous Epith Cells Urine Bacteria COVID-19 (ERIKA) Negative COVID-19 Clin Com See Note Assessment and Plan (1) Hematuria: Status: Acute (2) Alcohol withdrawal delirium: Status: Acute (3) Colitis: Status: Acute Assessment and Plan: hospital d#1 50yo M with hx EtOH abuse sent in from [place] detox for hematuria, altered mental status # EtOH withdrawal - phenobarbital taper, thiamine, folate, counseling # EtOH hepatitis - not severe [Maddrey discriminant function 30], supportive care, check HBV/HCV # hematuria - check GC/CT, UCx, Urology consult # colitis - ceftriaxone + metronidazole d#1 # VTE ppx - SCDs
--- NOTE | 2021-02-13 14:42 | PC.NURSE ---
came to see patient around 11am. Per does not feel that the patient has UTI. Pt's penis noted to have some kimberley red blood on the end when he voids. Urine is jimenez/slightly orange in color. No foul odor noted.
[2021-02-14] MEDS: Thiamine HCL 500 MG in 0.9 % Sodium Chloride 100 ML 210 MG IV ×3 (01:20→19:17)
[2021-02-14] MEDS: metroNIDAZOLE/NS 500 MG/100 ML PIGGYBACK 100 MG IV ×3 (02:28→16:55)
[2021-02-14 04:00] VITALS: BP 139/77; PULSE 66; RESP 16; TEMP 36.9; O2SAT 97
[2021-02-14] MEDS: cefTRIAXone sodium 1 GM in 0.9 % Sodium Chloride 50 ML IV ×2 (06:50→07:00)
[2021-02-14 07:22] LABS: Anion Gap 14 (12-20); Blood Urea Nitrogen 8 mg/dL (9-16); Carbon Dioxide 27 mmol/L (22-29); Chloride 97 mmol/L (96-108); Creatinine Clr Calc Pharmacy 138.2; Estimated Glomerular Filt Rate > 60; Glucose Random 98 mg/dL (60-115); Potassium 3.2 mmol/L (3.3-5.1); Sodium 135 mmol/L (135-145)
[2021-02-14 07:28] VITALS: BP 117/74; PULSE 82; RESP 18; TEMP 36.3; O2SAT 96
[2021-02-14 07:30] LABS: Basophils Percent Auto 0.7 % (0-2); Eosinophils Absolute Auto 0.1 X10*3/uL (0.0-0.4); Eosinophils Percent Auto 2.7 % (0-4); Hematocrit 32.1 % (42-52); Hemoglobin 11.4 g/dl (14.0-18.0); Imm Gran Abs Auto 0.01 X10*3/uL (0.00-0.03); Imm Gran Pct Auto 0.2 % (0.0-0.4); Lymphocytes Absolute Auto 1.2 X10*3/uL (1.2-4.9); Lymphocytes Percent Auto 26.4 % (20-40); MANUAL DIFF FLAG SCAN; Mean Corpuscular HGB Conc 35.5 g/dl (31.0-36.0); Mean Corpuscular Hemoglobin 34.7 pg (27.0-33.0); Mean Corpuscular Volume 97.6 fL (80-98); Monocytes Absolute Auto 0.9 X10*3/uL (0.1-1.2); Monocytes Percent Auto 20.7 % (2-11); Neutrophils Absolute Auto 2.2 X10*3/uL (2.0-8.3); Neutrophils Percent Auto 49.3 % (45-73); Red Blood Count 3.29 X10*6/uL (4.60-5.80); Red Cell Distribution Width 14.4 % (11.0-16.0); SCAN SMEAR FLAG 1; White Blood Count 4.5 X10*3/uL (4.8-10.8)
[2021-02-14 07:32] LABS: Platelet Count 56 X10*3/uL (160-400)
[2021-02-14 07:53] LABS: SLIDE REVIEW VERIFIED
[2021-02-14] MEDS: PHENobarbitaL 15 MG TABLET 45 MG PO ×2 (08:58→20:16)
[2021-02-14 09:35] LABS: C Reactive Protein 2.13 mg/dL (< or = 0.50); Magnesium 1.2 mg/dL (1.6-2.6)
--- NOTE | 2021-02-14 10:13 | MHC.RECOVSUP ---
Recovery Support note: Patient is a 50 year old Sudanese speaking male who presented to [facility] ED from [facility]. Patient was medically admitted and seen by this video game script writer in room 445-1. Patient was willing to discuss substance use and recovery supports with this video game script writer. Patient reports his drinking ebbs and flows and that he typically starts drinking because he gets bored. Patient reports his girlfriend and mother were concerned with his drinking and they were the reason he stopped drinking this time. Patient reports he has been to AA meetings in the past but has not found them helpful, stating find me a meeting that doesn't smell like coffee and cigarettes and I will consider it. Discussed [facility] [place] with patient and provided him with information on this resource. Patient reports he is interested in meeting with a investment recovery technician kristin and this video game script writer will arrange that. Discussed IOP with patient and provided information on this resource. Discussed medications for alcohol use disorder with patient and provided patient with information on MAT clinics in the area. This video game script writer will discuss case with Recovery Support Team on 02/15 in regards to MAT. Patient reports confidence that he will be able to maintain sobriety going forward.
[2021-02-14] MEDS: 0.9 % Sodium Chloride 1,000 ML 100 ML IVCONT ×3 (10:18→23:42)
[2021-02-14 11:48] VITALS: BP 98/56; PULSE 97; RESP 18; TEMP 36.7; O2SAT 98
--- NOTE | 2021-02-14 12:00 | P.PNIM_ITS ---
Subjective Subjective Date of Service: 02/14/21 Interval History: awake denies any abd pain or diarrhea Physical Exam Vital Signs: Vital Signs: Last Vital Signs Temp 98.0 F 02/14/21 11:48 Pulse 97 02/14/21 11:48 Resp 18 02/14/21 11:48 BP 98/56 L 02/14/21 11:48 Pulse Ox 98 02/14/21 11:48 Body Mass Index 26.4 Gen: in no acute distress HEENT: sclera anicteric, moist mucus membranes Neck: supple Lungs: clear to auscultation bilaterally Heart: regular rate and rhythm, no murmurs Abd: soft, non-tender, non-distended Ext: no edema Skin: warm/well-perfused Neuro: alert and oriented x3, no focal findings Psych: appropriate affect Objective Data Current Medications Generic Name Dose Route Start Last Admin Trade Name Freq PRN Reason Stop Dose Admin Acetaminophen 650 mg 02/13/21 08:03 Acetaminophen 325 Mg Tablet PO Q6H PRN Pain, Mild (Pain Scale 1-3) Docusate Sodium 100 mg 02/13/21 08:03 Docusate Sodium 100 Mg Capsule PO DAILY PRN Constipation Folic Acid 1 mg 02/13/21 09:00 02/14/21 10:19 Folic Acid 1 Mg/0.2 Ml Syringe IVPUSH 1 mg DAILY KAYLA Administration Ceftriaxone Sodium 1 gm/ 50 mls @ 100 mls/hr 02/13/21 06:45 02/14/21 09:26 Sodium Chloride IV Infused Q24H KAYLA Infusion Sodium Chloride 1,000 mls @ 100 mls/hr 02/13/21 08:03 02/14/21 10:18 Ns IVCONT 100 mls/hr .Q10H KAYLA Administration Metronidazole 500 mg in 100 mls @ 100 mls/hr 02/13/21 09:00 02/14/21 10:34 Flagyl IV Infused Q8H KAYLA Infusion Thiamine HCl 500 mg/ Sodium 105 mls @ 210 mls/hr 02/14/21 11:00 02/14/21 11:34 Chloride IV 210 mls/hr Q8H KAYLA Administration Magnesium Sulfate 2 gm in 50 mls @ 25 mls/hr 02/14/21 10:43 IV 02/14/21 12:42 ONCE ONE Magnesium Oxide 400 mg 02/14/21 17:30 Magnesium Oxide 400 Mg Tablet PO BIDPC KAYLA Medication 1 each 02/13/21 09:00 No Benzodiazepines MISCELLANE DAILY [facility] Ondansetron HCl 4 mg 02/13/21 08:03 Ondansetron Hcl 4 Mg/2 Ml Vial IVPUSH Q8H PRN Nausea and Vomiting Phenobarbital 45 mg 02/14/21 09:00 02/14/21 08:58 Phenobarbital 15 Mg Tablet PO 02/15/21 21:01 45 mg BID [facility] Administration Phenobarbital 15 mg 02/16/21 09:00 Phenobarbital 15 Mg Tablet PO 02/17/21 21:01 BID [facility] Phenobarbital 15 mg 02/18/21 09:00 Phenobarbital 15 Mg Tablet PO 02/19/21 09:01 DAILY [facility] Sodium Chloride 3 ml 02/13/21 08:03 02/14/21 08:59 0.9 % Sodium Chloride Flush 3 Ml Syringe IVFLUSH Not Given QSHIFT [facility] Labs CBC & Chem 7: 02/14/21 06:14 02/14/21 06:14 Microbiology Microbiology Results: Microbiology 02/13/21 09:50 Blood - Venous Blood Culture - Preliminary No growth after 24 hours. 02/13/21 09:49 Blood - Venous Blood Culture - Preliminary No growth after 24 hours. 02/12/21 00:00 Urine clean catch - Clean Catch Midstream Urine Culture - Final No growth. Assessment and Plan (1) Hematuria: Status: Acute (2) Alcohol withdrawal delirium: Status: Acute (3) Colitis: Status: Acute Assessment and Plan: hospital d#2 50yo M with hx EtOH abuse sent in from [facility] for hematuria, altered mental status # hypoMg - replete IV+PO, recheck in am # hypoK - replete PO, recheck in am # EtOH withdrawal - phenobarbital taper, thiamine, folate, counseling # EtOH hepatitis - not severe [Maddrey discriminant function 30], supportive care, HBV/HCV screen pending, recheck LFTs in am # hematuria - check GC/CT, UCx, Urology consult # colitis - ceftriaxone + metronidazole d#2 # VTE ppx - SCDs
[2021-02-14] MEDS: Potassium Chloride ER 20 MEQ TAB.ER.PRT 40 MEQ PO (12:14)
[2021-02-14] MEDS: Magnesium Sulfate/H2O 2 GM/50 ML PIGGYBACK IV (12:15)
[2021-02-14 15:06] VITALS: BP 146/75; PULSE 78; RESP 18; TEMP 37.6; O2SAT 96
--- NOTE | 2021-02-14 15:41 | MHC.CM.PN ---
PT REPORTS HE LIVES WITH HIS , IS INDEPENDENT AND WORKS. PT DENIES HAVING IN HOME SERVICES OR DME. PT REPORTS HE GOES TO [facility] [place] BUT DOES NOT KNOW THE NAME OF HIS PCP. PT DOES NOT HAVE A HCP BUT WILL COMPLETE ONE NAMING HIS S/O YARON SANCHEZ ([phone]). PT DC PLAN IS TBD PENDING CARE TEAM CONSULT. HOME VS ETOH TREATMENT FACILITY PT WILL ARRANGE TRANSPORT HOME BUT MAY NEED ASSISTANCE IF GOING TO TREATMENT
[2021-02-14 15:52] LABS: CT PCR NOT DETECTED (Not Detect.); NG PCR NOT DETECTED (Not Detect.)
[2021-02-14] MEDS: Magnesium Oxide 400 MG TABLET PO (16:54)
[2021-02-14 19:15] VITALS: BP 129/74; PULSE 79; RESP 18; TEMP 36.8; O2SAT 96
[2021-02-14 23:44] VITALS: BP 154/78; PULSE 76; RESP 18; TEMP 37.5; O2SAT 95
[2021-02-15] MEDS: metroNIDAZOLE/NS 500 MG/100 ML PIGGYBACK 100 MG IV ×3 (00:47→16:42)
[2021-02-15] MEDS: Thiamine HCL 500 MG in 0.9 % Sodium Chloride 100 ML 210 MG IV ×3 (02:46→18:29)
[2021-02-15 03:43] VITALS: BP 151/81; PULSE 74; RESP 20; TEMP 37.4; O2SAT 99
[2021-02-15 07:02] LABS: Basophils Percent Auto 0.9 % (0-2); Eosinophils Absolute Auto 0.2 X10*3/uL (0.0-0.4); Eosinophils Percent Auto 3.5 % (0-4); Hematocrit 32.7 % (42-52); Hemoglobin 11.4 g/dl (14.0-18.0); Imm Gran Abs Auto 0.01 X10*3/uL (0.00-0.03); Imm Gran Pct Auto 0.2 % (0.0-0.4); Lymphocytes Absolute Auto 1.2 X10*3/uL (1.2-4.9); Lymphocytes Percent Auto 27.8 % (20-40); MANUAL DIFF FLAG SCAN; Mean Corpuscular HGB Conc 34.9 g/dl (31.0-36.0); Mean Corpuscular Hemoglobin 34.4 pg (27.0-33.0); Mean Corpuscular Volume 98.8 fL (80-98); Mean Platelet Volume 11.8 fL (9.4-12.4); Monocytes Absolute Auto 0.9 X10*3/uL (0.1-1.2); Neutrophils Percent Auto 46.6 % (45-73); Red Blood Count 3.31 X10*6/uL (4.60-5.80); Red Cell Distribution Width 14.7 % (11.0-16.0); SCAN SMEAR FLAG 1; White Blood Count 4.3 X10*3/uL (4.8-10.8)
[2021-02-15 07:03] LABS: Platelet Count 61 X10*3/uL (160-400)
[2021-02-15 07:11] VITALS: BP 135/72; PULSE 71; RESP 18; TEMP 36.6; O2SAT 97
[2021-02-15 07:17] LABS: Alanine Aminotransferase 29 U/L (0-40); Alkaline Phosphatase 272 U/L (39-117); Anion Gap 15 (12-20); Aspartate Amino Transferase 94 U/L (5-37); Bilirubin Total 1.2 mg/dL (0.0-1.0); Blood Urea Nitrogen 8 mg/dL (9-16); Calcium 7.7 mg/dL (8.4-10.2); Carbon Dioxide 24 mmol/L (22-29); Chloride 100 mmol/L (96-108); Creatinine Clr Calc Pharmacy 128.5; Estimated Glomerular Filt Rate > 60; Glucose Random 112 mg/dL (60-115); Magnesium 1.5 mg/dL (1.6-2.6); Potassium 3.1 mmol/L (3.3-5.1); Sodium 136 mmol/L (135-145)
[2021-02-15 07:32] LABS: Albumin Level 2.9 g/dL (3.5-5.0); Total Protein 6.5 g/dL (6.5-8.0)
[2021-02-15 07:51] LABS: SLIDE REVIEW VERIFIED
[2021-02-15] MEDS: PHENobarbitaL 15 MG TABLET 45 MG PO ×2 (09:07→21:31)
[2021-02-15] MEDS: Magnesium Oxide 400 MG TABLET 800 MG PO ×2 (09:07→16:42)
[2021-02-15] MEDS: Potassium Chloride ER 20 MEQ TAB.ER.PRT 40 MEQ PO (09:07)
--- NOTE | 2021-02-15 09:30 | MHC.RECOVRN ---
T/w met with pt in 445 after pt had expressed interest in medication for AUD to Recovery Marketing Project Lead. Pt reports drinking 2-3 big bottles of Listerine x 2-3 years. Pt has hx of treatment for AUD including ATS and residential programs. Pt denies having been prescribed any medication for AUD in the past. Pt states I'd like to cut down and be able to have a beer with dinner but it's best to leave it all alone. Pt was educated regarding medication options for AUD and also provided with written information. After discussion, pt is interested in naltrexone. Case was discussed and referred to Meghana Santiago APRN, for addiction med consult. Pt was given t/w card if questions or concerns arise.
--- NOTE | 2021-02-15 09:59 | MHC.RECOVSUP ---
Recovery Support note: Patient met with Wireline Field Operator Agapito this morning to discuss recovery coaching, the recovery center and community supports. Patient reports he is not interested in going anywhere for ongoing substance use treatment after discharge. Patient reports he was only seeking detox and that he will not require an additional inpatient program for substance use. Patient reports no questions at this time regarding the resources provided by this technical proposal writer yesterday. Patient met with Recovery Support RN to discuss medications for alcohol use disorder.
--- NOTE | 2021-02-15 10:17 | MHC.RECOVSUP ---
? Reason for consult:Continuity of care o Current location: [facility] o Identified substance use concern:ETOH - Support ? Intervention: o MAT started or to be started o Community resources provided o ? Plan: o Referral to [facility] o Patient to follow up with [facility] after discharge ? Additional information:PT. given community resources and referred to the [facility]
[2021-02-15 11:16] VITALS: BP 160/82; PULSE 79; RESP 18; TEMP 37.1; O2SAT 94
--- NOTE | 2021-02-15 11:49 | MHC.CM.PN ---
bob ham will see pt today
[2021-02-15] MEDS: 0.9 % Sodium Chloride 1,000 ML 100 ML IVCONT ×2 (12:08→21:31)
[2021-02-15 15:15] VITALS: BP 156/80; PULSE 65; RESP 18; TEMP 36.9; O2SAT 97
--- NOTE | 2021-02-15 15:27 | MHC.CM.PN ---
hcp completed and placed on [facility]
--- NOTE | 2021-02-15 16:55 | HO.ADDICT_ITS ---
History of Present Illness Date of Service: 02/15/2021 Chief Complaint: alcohol withdrawal Reason for Consult: Alcohol use disorder --interested in MAT Requesting physician: Pérez Blevins Discussed with referring provider: No Sources of Information: patient interviewed and chart reviewed Additional Sources of Information: Recovery Support RN HPI Narrative: Patient is a 50 year old male currently medically admitted with alcohol withdrawal and UTI. He presented to [facility] from [facility] for hematuria and altered mental status. Patient seen earlier by Recovery support team expressed an interest in medication for AUD. Joyce seen in room 445, asleep upon arrival, but easily awoken. Engaged in interview, somewhat casual affect when discussing his history of alcohol use. Reports one previous treatment admission in 2007 and reports he was in recovery up until 2-3 years ago. He reports drinking a bottle of listerine every day including while at work. Denies any other substance use. Medical Evaluation Reviewed: Yes monitoring LFTs, being treated for colitis Personal & Social History: , no children works FT Review of Systems Constitutional: Denies headache(s), Denies lethargy and Denies malaise Denies headache(s) Denies headache(s) Psychiatric: Reports anxiety, Reports depression, Reports anhedonia and Denies suicidal ideation Diagnostics Vital Signs (24Hr): Vital Signs - 24 hr 02/14/21 19:15 02/14/21 23:44 02/15/21 03:43 Temperature 98.2 F 99.5 F 99.4 F Pulse Rate 79 76 74 Respiratory Rate 18 18 20 Blood Pressure 129/74 154/78 H 151/81 H Pulse Oximetry 96 95 99 02/15/21 07:11 02/15/21 11:16 02/15/21 15:15 Temperature 97.9 F 98.7 F 98.5 F Pulse Rate 71 79 65 Respiratory Rate 18 18 18 Blood Pressure 135/72 160/82 H 156/80 H Pulse Oximetry 97 94 97 Body Mass Index 26.4 Labs Results: 02/15/21 05:24 02/15/21 05:24 Labs: Laboratory Results - last 48 hr 02/14/21 02/14/21 02/14/21 06:14 06:14 11:54 WBC 4.5 L RBC 3.29 L D Hgb 11.4 L Hct 32.1 L D MCV 97.6 MCH 34.7 H MCHC 35.5 RDW 14.4 Plt Count 56 L MPV 12.0 Immature Gran % (Auto) 0.2 Neut % (Auto) 49.3 Lymph % (Auto) 26.4 Dukes % (Auto) 20.7 H Eos % (Auto) 2.7 Baso % (Auto) 0.7 Lymph # (Auto) 1.2 Dukes # (Auto) 0.9 Eos # (Auto) 0.1 Baso # (Auto) 0.0 Abs Immat Gran (auto) 0.01 Absolute Neuts (auto) 2.2 Absolute Nucleated RBC 0.000 Nucleated RBC % (auto) 0.0 Smear Tech's Comments VERIFIED Sodium 135 Potassium 3.2 L Chloride 97 Carbon Dioxide 27 Anion Gap 14 BUN 8 L Creatinine 0.66 Estim Creat Clear Calc 138.2 Estimated GFR > 60 Random Glucose 98 Calcium 8.0 L D Magnesium 1.2 L* Total Bilirubin AST ALT Alkaline Phosphatase C-Reactive Protein 2.13 H Total Protein Albumin Chlam trachomat DNA PCR NOT DETECTED N.gonorrhoeae DNA (PCR) NOT DETECTED 02/15/21 02/15/21 05:24 05:24 WBC 4.3 L RBC 3.31 L Hgb 11.4 L Hct 32.7 L MCV 98.8 H MCH 34.4 H MCHC 34.9 RDW 14.7 Plt Count 61 L MPV 11.8 Immature Gran % (Auto) 0.2 Neut % (Auto) 46.6 Lymph % (Auto) 27.8 Dukes % (Auto) 21.0 H Eos % (Auto) 3.5 Baso % (Auto) 0.9 Lymph # (Auto) 1.2 Dukes # (Auto) 0.9 Eos # (Auto) 0.2 Baso # (Auto) 0.0 Abs Immat Gran (auto) 0.01 Absolute Neuts (auto) 2.0 Absolute Nucleated RBC 0.000 Nucleated RBC % (auto) 0.0 Smear Tech's Comments VERIFIED Sodium 136 Potassium 3.1 L Chloride 100 Carbon Dioxide 24 Anion Gap 15 BUN 8 L Creatinine 0.71 Estim Creat Clear Calc 128.5 Estimated GFR > 60 Random Glucose 112 Calcium 7.7 L Magnesium 1.5 L Total Bilirubin 1.2 H AST 94 H ALT 29 Alkaline Phosphatase 272 H D C-Reactive Protein Total Protein 6.5 D Albumin 2.9 L D Chlam trachomat DNA PCR N.gonorrhoeae DNA (PCR) Imaging Radiology Impressions: ITS Impressions Abdomen/Pelvis CT 02/13/21 00:05 IMPRESSION: There is submucosal edema and pericolic fat stranding involving the cecum and ascending colon suspicious for colitis. There is mild thickening of the appendix, particularly near the base favored to be secondary to the cecal/colonic inflammation as opposed to representing appendicitis. Head CT 02/13/21 03:14 IMPRESSION: No acute intracranial pathology. Mental Status Exam Mental Status Exam Patient Appearance: Appropriate Patient Orientation: Person, Place, Time and Situation Level of Consciousness: Awake and Alert Patient Behavior: Talkative and Cooperative Mood Description: Blunted Affect Description: Blunted Speech Pattern: Clear Hallucinations: None Delusions: Not Present Thought Process: Goal Oriented Thought Content: positive for [place] Judgement: Fair Medications Medications Current Medications Generic Name Dose Route Start Last Admin Trade Name Freq PRN Reason Stop Dose Admin Acetaminophen 650 mg 02/13/21 08:03 Acetaminophen 325 Mg Tablet PO Q6H PRN Pain, Mild (Pain Scale 1-3) Docusate Sodium 100 mg 02/13/21 08:03 Docusate Sodium 100 Mg Capsule PO DAILY PRN Constipation Folic Acid 1 mg 02/13/21 09:00 02/15/21 09:08 Folic Acid 1 Mg/0.2 Ml Syringe IVPUSH 1 mg DAILY KAYLA Administration Ceftriaxone Sodium 1 gm/ 50 mls @ 100 mls/hr 02/13/21 06:45 02/14/21 09:26 Sodium Chloride IV Infused Q24H KAYLA Infusion Sodium Chloride 1,000 mls @ 100 mls/hr 02/13/21 08:03 02/15/21 12:08 Ns IVCONT 100 mls/hr .Q10H KAYLA Administration Metronidazole 500 mg in 100 mls @ 100 mls/hr 02/13/21 09:00 02/15/21 16:42 Flagyl IV 100 mls/hr Q8H KAYLA Administration Thiamine HCl 500 mg/ Sodium 105 mls @ 210 mls/hr 02/14/21 11:00 02/15/21 11:47 Chloride IV Infused Q8H KAYLA Infusion Magnesium Oxide 800 mg 02/15/21 08:30 02/15/21 16:42 Magnesium Oxide 400 Mg Tablet PO 800 mg BIDPC KAYLA Administration Medication 1 each 02/13/21 09:00 No Benzodiazepines MISCELLANE DAILY KAYLA Ondansetron HCl 4 mg 02/13/21 08:03 Ondansetron Hcl 4 Mg/2 Ml Vial IVPUSH Q8H PRN Nausea and Vomiting Phenobarbital 45 mg 02/14/21 09:00 02/15/21 09:07 Phenobarbital 15 Mg Tablet PO 02/15/21 21:01 45 mg BID KAYLA Administration Phenobarbital 15 mg 02/16/21 09:00 Phenobarbital 15 Mg Tablet PO 02/17/21 21:01 BID KAYLA Phenobarbital 15 mg 02/18/21 09:00 Phenobarbital 15 Mg Tablet PO 02/19/21 09:01 DAILY KAYLA Sodium Chloride 3 ml 02/13/21 08:03 02/15/21 16:42 0.9 % Sodium Chloride Flush 3 Ml Syringe IVFLUSH Not Given QSHIFT KAYLA Allergies Allergies Allergy/AdvReac Type Severity Reaction Status Date / Time bee pollen [BEE POLLEN] Allergy Unknown ANAPHYLAXIS Verified 02/09/21 02:53 Assessment & Plan Assessment & Plan (1) Alcohol use disorder, severe, dependence: Status: Acute Code(s): F10.20 - Alcohol dependence, uncomplicated Recommendations: * Patient interested in Naltrexone trial (50mg QD) * Will discuss with hospitalist in AM--would be good to start prior to discharge if possible * Recovery support RN to follow up with care coordination prior to discharge Greater than 50% of the session was spent on counseling and/or coordination of care Patient educated on: medication risk/benefits and therapeutic strategies Informed Consent: understands [facility] Past Medical History Medical History Anxiety, generalized Difficulty sleeping Encounter for general adult medical examination with abnormal findings Meningitis spinal Prehypertension Tinnitus Family History Family History Brother Heart attack Social History Social History Household Members: Spouse Housing: Condominium Do you presently have visiting nurse or other home services: No Alcohol intake: current Alcohol intake frequency: a few times a month Smoking Status: Unknown if ever smoked Use of substances other than those prescribed or required for medical reasons: No Currently Displaying Signs/Symptoms of Drug Intoxication Withdrawal: No Have you been hit, kicked, punched, or otherwise hurt by someone within the past year? If so, by whom?: No Do you feel safe in your current relationship?: Yes Is there a partner from a previous relationship who is making you feel unsafe now?: No Are you made to feel afraid or neglected: No Advance Directives: No Advance Directives Information Provided: Yes Do you have thoughts of harming others: None Do you have a plan to hurt others: No Plan Recently lost weight without trying: No service: No Current occupational status: employed
--- NOTE | 2021-02-15 17:59 | P.PNIM_ITS ---
Subjective Subjective Date of Service: 02/15/21 Interval History: feels well, no abd pain or diarrhea, good appetite Physical Exam Vital Signs: Vital Signs: Last Vital Signs Temp 98.5 F 02/15/21 15:15 Pulse 65 02/15/21 15:15 Resp 18 02/15/21 15:15 BP 156/80 H 02/15/21 15:15 Pulse Ox 97 02/15/21 15:15 Body Mass Index 26.4 Gen: in no acute distress HEENT: sclera anicteric, moist mucus membranes Neck: supple Lungs: clear to auscultation bilaterally Heart: regular rate and rhythm, no murmurs Abd: soft, non-tender, non-distended Ext: no edema Skin: warm/well-perfused Neuro: alert and oriented x3, no focal findings Psych: appropriate affect Objective Data Current Medications Generic Name Dose Route Start Last Admin Trade Name Freq PRN Reason Stop Dose Admin Acetaminophen 650 mg 02/13/21 08:03 Acetaminophen 325 Mg Tablet PO Q6H PRN Pain, Mild (Pain Scale 1-3) Docusate Sodium 100 mg 02/13/21 08:03 Docusate Sodium 100 Mg Capsule PO DAILY PRN Constipation Folic Acid 1 mg 02/13/21 09:00 02/15/21 09:08 Folic Acid 1 Mg/0.2 Ml Syringe IVPUSH 1 mg DAILY KAYLA Administration Ceftriaxone Sodium 1 gm/ 50 mls @ 100 mls/hr 02/13/21 06:45 02/14/21 09:26 Sodium Chloride IV Infused Q24H KAYLA Infusion Sodium Chloride 1,000 mls @ 100 mls/hr 02/13/21 08:03 02/15/21 12:08 Ns IVCONT 100 mls/hr .Q10H KAYLA Administration Metronidazole 500 mg in 100 mls @ 100 mls/hr 02/13/21 09:00 02/15/21 17:53 Flagyl IV Infused Q8H KAYLA Infusion Thiamine HCl 500 mg/ Sodium 105 mls @ 210 mls/hr 02/14/21 11:00 02/15/21 11:47 Chloride IV Infused Q8H KAYLA Infusion Magnesium Oxide 800 mg 02/15/21 08:30 02/15/21 16:42 Magnesium Oxide 400 Mg Tablet PO 800 mg BIDPC KAYLA Administration Medication 1 each 02/13/21 09:00 No Benzodiazepines MISCELLANE DAILY KAYLA Ondansetron HCl 4 mg 02/13/21 08:03 Ondansetron Hcl 4 Mg/2 Ml Vial IVPUSH Q8H PRN Nausea and Vomiting Phenobarbital 45 mg 02/14/21 09:00 02/15/21 09:07 Phenobarbital 15 Mg Tablet PO 02/15/21 21:01 45 mg BID [facility] Administration Phenobarbital 15 mg 02/16/21 09:00 Phenobarbital 15 Mg Tablet PO 02/17/21 21:01 BID [facility] Phenobarbital 15 mg 02/18/21 09:00 Phenobarbital 15 Mg Tablet PO 02/19/21 09:01 DAILY [facility] Sodium Chloride 3 ml 02/13/21 08:03 02/15/21 16:42 0.9 % Sodium Chloride Flush 3 Ml Syringe IVFLUSH Not Given QSHIFT [facility] Labs CBC & Chem 7: 02/15/21 05:24 02/15/21 05:24 Labs: Laboratory Results - last 24 hr 02/15/21 02/15/21 05:24 05:24 WBC 4.3 L RBC 3.31 L Hgb 11.4 L Hct 32.7 L MCV 98.8 H MCH 34.4 H MCHC 34.9 RDW 14.7 Plt Count 61 L MPV 11.8 Immature Gran % (Auto) 0.2 Neut % (Auto) 46.6 Lymph % (Auto) 27.8 Perry % (Auto) 21.0 H Eos % (Auto) 3.5 Baso % (Auto) 0.9 Lymph # (Auto) 1.2 Perry # (Auto) 0.9 Eos # (Auto) 0.2 Baso # (Auto) 0.0 Abs Immat Gran (auto) 0.01 Absolute Neuts (auto) 2.0 Absolute Nucleated RBC 0.000 Nucleated RBC % (auto) 0.0 Smear Tech's Comments VERIFIED Sodium 136 Potassium 3.1 L Chloride 100 Carbon Dioxide 24 Anion Gap 15 BUN 8 L Creatinine 0.71 Estim Creat Clear Calc 128.5 Estimated GFR > 60 Random Glucose 112 Calcium 7.7 L Magnesium 1.5 L Total Bilirubin 1.2 H AST 94 H ALT 29 Alkaline Phosphatase 272 H D Total Protein 6.5 D Albumin 2.9 L D Microbiology Microbiology Results: Microbiology 02/13/21 09:49 Blood - Venous Blood Culture - Preliminary No growth after 48 hours. 02/13/21 09:50 Blood - Venous Blood Culture - Preliminary No growth after 48 hours. 02/12/21 00:00 Urine clean catch - Clean Catch Midstream Urine Culture - Final No growth. Assessment and Plan (1) Hematuria: Status: Acute (2) Alcohol withdrawal delirium: Status: Acute (3) Colitis: Status: Acute Assessment and Plan: hospital d#3 50yo M with hx EtOH abuse sent in from [facility] for hematuria, altered mental status # hypoMg - replete PO, recheck in am # hypoK - replete PO, recheck in am # EtOH withdrawal - phenobarbital taper, thiamine, folate, counseling # EtOH hepatitis - not severe [Maddrey discriminant function 30], supportive care, HBV/HCV screen pending, LFTs improving # pancytopenia - monitor, avoid heparin, HBV/HCV/HIV screen pending but likely due to EtOH- induced myelosuppression # hematuria - UCx + GC/CT negative, hematuria resolved # colitis - ceftriaxone + metronidazole d#3 # VTE ppx - SCDs
[2021-02-15 20:00] VITALS: BP 166/99; PULSE 74; RESP 20; TEMP 36.9; O2SAT 98
[2021-02-15 23:55] VITALS: BP 162/89; PULSE 77; RESP 18; TEMP 37.6; O2SAT 97
[2021-02-16] MEDS: diphenhydrAMINE HCL 25 MG TABLET PO (00:09)
[2021-02-16] MEDS: metroNIDAZOLE/NS 500 MG/100 ML PIGGYBACK 100 MG IV (00:40)
[2021-02-16] MEDS: Thiamine HCL 500 MG in 0.9 % Sodium Chloride 100 ML 210 MG IV ×2 (02:23→10:39)
[2021-02-16 03:19] VITALS: BP 165/101; PULSE 66; RESP 18; TEMP 37.8; O2SAT 97
[2021-02-16 04:02] VITALS: TEMP 37.3
[2021-02-16] MEDS: cefTRIAXone sodium 1 GM in 0.9 % Sodium Chloride 50 ML IV (05:43)
[2021-02-16 07:33] LABS: Anion Gap 10 (12-20); Blood Urea Nitrogen 9 mg/dL (9-16); Calcium 8.2 mg/dL (8.4-10.2); Carbon Dioxide 29 mmol/L (22-29); Chloride 100 mmol/L (96-108); Creatinine Clr Calc Pharmacy 136.1; Estimated Glomerular Filt Rate > 60; Glucose Random 87 mg/dL (60-115); Magnesium 1.5 mg/dL (1.6-2.6); Potassium 3.8 mmol/L (3.3-5.1); Sodium 135 mmol/L (135-145)
[2021-02-16 07:46] VITALS: BP 136/75; PULSE 70; RESP 18; TEMP 37.4; O2SAT 97
[2021-02-16 08:06] LABS: HBS Num1 0.26 mIU/mL (0-7.99); HBsAGNum1 0.61 S/CO (0.00-0.99); Hepatitis B Surface Antigen Negative (Negative); ~Hepatitis B Surface Antibody NONREACTIVE (Nonreactive)
[2021-02-16] MEDS: Magnesium Oxide 400 MG TABLET 800 MG PO (08:10)
[2021-02-16] MEDS: Amoxicillin/Potassium Clav 875 MG TABLET PO (08:10)
[2021-02-16] MEDS: Magnesium Sulfate/H2O 2 GM/50 ML PIGGYBACK IV (08:10)
[2021-02-16] MEDS: PHENobarbitaL 15 MG TABLET PO (08:11)
[2021-02-16 08:30] LABS: HBc Num1 0.08 S/CO (0.00-0.79); HIV AB/AG Nonreactive (Nonreactive); HIV Num 1 0.07 S/CO (0.00-0.99); Hepatitis B Core Antibody Nonreactive (Nonreactive); ~HepC Num1 0.11 S/CO (0.00-0.79); ~Hepatitis C Antibody Nonreactive (Nonreactive)
[2021-02-16 10:10] LABS: Glucose Urine UA NEG (NEG); Leukocyte Esterase Urine NEG (NEG); Nitrite Urine NEG (NEG); PH 6.5 (5.0-8.0); Urine Blood TRACE (NEG); Urine Ketones NEG (NEG); Urine Protein NEG (NEG-TRACE)
[2021-02-16 10:13] LABS: Appearance Urine HAZY; Color Urine AMBER
[2021-02-16 11:01] LABS: WBC Urine 0-2 /HPF (0-4)
[2021-02-16 11:20] VITALS: BP 149/82; PULSE 73; RESP 18; TEMP 37.4; O2SAT 98
--- NOTE | 2021-02-16 11:58 | MHC.RECOVRN ---
Pt has intake appointment at the [facility] on 02/16/21 at 0930 to initiate medication for alcohol use disorder. CM aware.
--- NOTE | 2021-02-16 12:10 | PM.DS ---
DS: Providers Provider Date of Service: 02/16/21 Date of admission: 02/13/21 06:24 Primary care physician: Edda Richards MD Consults: 02/13/21 08:03 Consult to Urology Routine Consulting Provider: Angel Real Reason for consultation: Hematuria Has provider been notified: No 02/13/21 13:52 Consult to Care Team Routine Comment: Reason for consultation: etoh DS: Diagnosis Discharge Diagnosis (1) Hematuria: Status: Acute (2) Alcohol withdrawal delirium: Status: Acute (3) Colitis: Status: Acute (4) Hypomagnesemia: Status: Acute (5) Alcohol use disorder, severe, dependence: Status: Acute (6) Pancytopenia: Status: Acute DS: Medications Discharge Medications Home Medications: Home Medications Medication Instructions Recorded Confirmed diphenhydramine HCl 25 mg capsule 25 mg PO BEDTIME 11/16/20 Previous Rx's Medication Instructions Recorded lorazepam [Ativan] 1 mg PO TID PRN 3 Days #7 tab 02/09/21 ondansetron 4 mg PO TID PRN 5 Days #10 tab 02/09/21 DS: Summary Hospital Course Hospital Course: From history and physical by admitting hospitalist Chiquita Cardoza, 02/13/21: This is a 50-year-old male with past medical history of alcohol abuse, anxiety, who presents to the hospital with complaints of alcohol withdrawal as well as hematuria. Patient was currently being managed for alcohol detox at [facility] but they sent him to the hospital due to hematuria. Patient was in active withdrawal in the hospital and patient was given Librium as well as multiple doses of Ativan. Patient currently very somnolent, arousable to painful stimuli but unable to give much history. According to ED physician patient's last drink was Monday, he has been experiencing visual hallucinations, he appears to be making up stories with the ED physician, and there is concern for Wernicke's encephalopathy I am unable to his other systems as patient is too somnolent to answer No significant abnormal vitals except for heart rate of 121. Has a temp of 99.7?, respiratory rate of 16, blood pressure 127/83, satting 97% on room air Labs are significant for WBC count of 5.8, hemoglobin of 14.2, hematocrit 41%, sodium of 134, potassium 3.5, total bili of 2.9, AST of 147, ALT of 41, alk-phos of 152, total protein of 9.0, UA positive for blood as well as leukocyte Estrace and some WBC, Head CT demonstrates no acute intracranial pathology Abdominal CT shows submucosal edema and Parish colic fat stranding involving the cecum and ascending colon suspicious for colitis. Mild thickening of the appendix fever to be secondary to the cecal colonic inflammation as opposed to representing appendicitis The patient was admitted to the [facility] and was treated for alcohol withdrawal with phenobarbital taper. He has some degree of alcoholic hepatitis but not severe enough to warrant steroid or pentoxyfilline therapy. He was given thiamine and folate and met with the substance abuse counselor. Addiction Medicine was also consulted and the patient was started on naltrexone upon discharge. He was started on magnesium supplementation for low magnesium. Pancytopenia was attributed to myelosuppression from alcohol. Future orders for BMP, magnesium, and CBCd to be done in 2 days were placed. Hematuria resolved without intervention, and there was no evidence of bacterial urine infection or gonorrhea or chlamydia. There was some degree of colitis on CT scan for which the patient was treated with ceftriaxone and metronidazole. He had minimal abdominal symptoms. He was discharged on 4 days of amoxicillin/clavulanate. Over all, the importance of abstinence from alcohol was emphasized. Time Spent with Patient Time attestation: Total time spent providing and/or coordinating discharge services: 35 Discharge coordination time: Greater than 30 minutes Physical Exam Vital Signs: Vital Signs: Last Vital Signs Temp 99.3 F 02/16/21 11:20 Pulse 73 02/16/21 11:20 Resp 18 02/16/21 11:20 BP 149/82 H 02/16/21 11:20 Pulse Ox 98 02/16/21 11:20 Body Mass Index 26.4 Gen: in no acute distress HEENT: sclera anicteric, moist mucus membranes Neck: supple Lungs: clear to auscultation bilaterally Heart: regular rate and rhythm, no murmurs Abd: soft, non-tender, non-distended Ext: no edema Skin: warm/well-perfused Neuro: alert and oriented x3, no focal findings Psych: appropriate affect DS: Data Data Completed and Pending Labs on day of discharge: Laboratory Results WBC 4.3 X10*3/uL (4.8-10.8) L 02/15/21 05:24 RBC 3.31 X10*6/uL (4.60-5.80) L 02/15/21 05:24 Hgb 11.4 g/dl (14.0-18.0) L 02/15/21 05:24 Hct 32.7 % (42-52) L 02/15/21 05:24 MCV 98.8 fL (80-98) H 02/15/21 05:24 MCH 34.4 pg (27.0-33.0) H 02/15/21 05:24 MCHC 34.9 g/dl (31.0-36.0) 02/15/21 05:24 RDW 14.7 % (11.0-16.0) 02/15/21 05:24 Plt Count 61 X10*3/uL (160-400) L 02/15/21 05:24 MPV 11.8 fL (9.4-12.4) 02/15/21 05:24 Immature Gran % (Auto) 0.2 % (0.0-0.4) 02/15/21 05:24 Neut % (Auto) 46.6 % (45-73) 02/15/21 05:24 Lymph % (Auto) 27.8 % (20-40) 02/15/21 05:24 [place] % (Auto) 21.0 % (2-11) H 02/15/21 05:24 Eos % (Auto) 3.5 % (0-4) 02/15/21 05:24 Baso % (Auto) 0.9 % (0-2) 02/15/21 05:24 Lymph # (Auto) 1.2 X10*3/uL (1.2-4.9) 02/15/21 05:24 [place] # (Auto) 0.9 X10*3/uL (0.1-1.2) 02/15/21 05:24 Eos # (Auto) 0.2 X10*3/uL (0.0-0.4) 02/15/21 05:24 Baso # (Auto) 0.0 X10*3/uL (0.0-0.2) 02/15/21 05:24 Abs Immat Gran (auto) 0.01 X10*3/uL (0.00-0.03) 02/15/21 05:24 Absolute Neuts (auto) 2.0 X10*3/uL (2.0-8.3) 02/15/21 05:24 Absolute Nucleated RBC 0.000 X10*3/uL (0.0-0.012) 02/15/21 05:24 Nucleated RBC % (auto) 0.0 /100WBC (0.0-0.2) 02/15/21 05:24 Smear Tech's Comments VERIFIED 02/15/21 05:24 Sodium 135 mmol/L (135-145) 02/16/21 05:40 Potassium 3.8 mmol/L (3.3-5.1) D 02/16/21 05:40 Chloride 100 mmol/L (96-108) 02/16/21 05:40 Carbon Dioxide 29 mmol/L (22-29) 02/16/21 05:40 Anion Gap 10 (12-20) L 02/16/21 05:40 BUN 9 mg/dL (9-16) 02/16/21 05:40 Creatinine 0.67 mg/dL (0.5-1.4) 02/16/21 05:40 Estim Creat Clear Calc 136.1 02/16/21 05:40 Estimated GFR > 60 02/16/21 05:40 Random Glucose 87 mg/dL (60-115) 02/16/21 05:40 Calcium 8.2 mg/dL (8.4-10.2) L D 02/16/21 05:40 Magnesium 1.5 mg/dL (1.6-2.6) L 02/16/21 05:40 Total Bilirubin 1.2 mg/dL (0.0-1.0) H 02/15/21 05:24 AST 94 U/L (5-37) H 02/15/21 05:24 ALT 29 U/L (0-40) 02/15/21 05:24 Alkaline Phosphatase 272 U/L (39-117) H D 02/15/21 05:24 C-Reactive Protein 2.13 mg/dL (< or = 0.50) H 02/14/21 06:14 Total Protein 6.5 g/dL (6.5-8.0) D 02/15/21 05:24 Albumin 2.9 g/dL (3.5-5.0) L D 02/15/21 05:24 Lipase 56 U/L (8-78) 02/12/21 22:13 Urine Color KATY 02/16/21 09:31 Urine Appearance HAZY 02/16/21 09:31 Urine pH 6.5 (5.0-8.0) 02/16/21 09:31 Ur Specific [place] 1.010 (1.005-1.025) 02/16/21 09:31 Urine Protein NEG MG/DL (NEG-TRACE) 02/16/21 09:31 Urine Glucose (UA) NEG MG/DL (NEG) 02/16/21 09:31 Urine Ketones NEG MG/DL (NEG) 02/16/21 09:31 Urine Blood TRACE (NEG) 02/16/21 09:31 Urine Nitrite NEG (NEG) 02/16/21 09:31 Ur Leukocyte Esterase NEG (NEG) 02/16/21 09:31 Urine RBC 1-4 /HPF (0) 02/16/21 09:31 Urine WBC 0-2 /HPF (0-4) 02/16/21 09:31 Ur Squamous Epith Cells NONE /LPF 02/16/21 09:31 Urine Bacteria NONE /LPF 02/16/21 09:31 Chlam trachomat DNA PCR NOT DETECTED (Not Detect.) 02/14/21 11:54 COVID-19 (ERIKA) Negative (Negative) 02/13/21 05:48 COVID-19 Clin Com See Note 02/13/21 05:48 Hep Bs Antigen Negative (Negative) 02/14/21 06:14 Hep Bs Antibody NONREACTIVE (Nonreactive) 02/14/21 06:14 Hep B Core Total Ab Nonreactive (Nonreactive) 02/14/21 06:14 Hepatitis C Ab (EIA) Nonreactive (Nonreactive) 02/14/21 06:14 HIV 1&2 Ab/P24 Ag 4thGn Nonreactive (Nonreactive) 02/14/21 06:14 N.gonorrhoeae DNA (PCR) NOT DETECTED (Not Detect.) 02/14/21 11:54 Impressions Abdomen/Pelvis CT 02/13/21 00:05 IMPRESSION: There is submucosal edema and pericolic fat stranding involving the cecum and ascending colon suspicious for colitis. There is mild thickening of the appendix, particularly near the base favored to be secondary to the cecal/colonic inflammation as opposed to representing appendicitis. Head CT 02/13/21 03:14 IMPRESSION: No acute intracranial pathology. Discharge Plan Discharge Patient Disposition: Home, Self-Care Referrals: Edda Richards MD [Physician] - Meghana Santiago CNP [Nurse Practitioner] - Physician,Unknown [Primary Care Provider] - Discharge Medications: New magnesium oxide 400 mg (241.3 mg magnesium) Tablet 800 mg PO BIDPC Qty: 120 RF: 0 amoxicillin-pot clavulanate 875-125 mg Tablet 875 mg PO Q12H Qty: 8 RF: 0 thiamine HCl (vitamin B1) 100 mg tablet 100 mg PO DAILY Qty: 30 RF: 0 folic acid 1 mg tablet 1 mg PO DAILY Qty: 30 RF: 0 naltrexone 50 mg tablet 50 mg PO DAILY Qty: 30 RF: 0 Continued ondansetron 4 mg tablet,disintegrating 4 mg PO TID PRN (Reason: nausea and vomiting) 5 Days Qty: 10 RF: 0 diphenhydramine HCl [ZzzQuil] 25 mg capsule 25 mg PO BEDTIME RF: 0 Discontinued lorazepam [Ativan] 1 mg tablet 1 mg PO TID PRN (Reason: alcohol withdrawal) 3 Days Qty: 7 RF: 0 Discharge Orders: Discharge Order (Routine); Ordered 02/16/21 Ordered By: Pérez Blevins Diet: advance to usual diet Activity on Discharge: no alcohol Stand Alone Forms: Patient Portal Discharge page Other Ambulatory Orders: Basic Metabolic Panel (Routine) Timeframe: 2 Days Facility: [facility] - Location: Laboratory Ordered By: Pérez Blevins Complete Blood Count Auto Diff (Routine) Timeframe: 2 Days Facility: [facility] - Location: Laboratory Ordered By: Pérez Blevins Magnesium (Routine) Timeframe: 2 Days Facility: [facility] - Location: Laboratory Ordered By: Pérez Blevins Care Plan Goals: sobriety Health Concerns: alcohol use disorder low magnesium pancytopenia hematuria colitis Plan of Treatment: take naltrexone 50 mg: half tab daily for 2 days, then 1 tab daily. follow up with [employer] Meghana Santiago at [facility] [place], [address] [place] [address], [address], [place] [address], , as scheduled; avoid alcohol take magnesium 400 m tabs twice daily. recheck labs (BMP, magnesium; no fasting needed) in 2-3 days recheck labs (CBCd; no fasting needed) in 2-3 days hematuria resolved; if recurs, consider Urology referral take amoxicllin/clavulanate 875/125 mg twice daily for 4 days see your primary care provider, Dr Richards, in 1 week Assessment: alcohol abuse with withdrawal, hypomagnesemia, hematuria, colitis Patient Instructions: Naltrexone (By mouth), Abuse of Alcohol (DC), Alcohol Withdrawal (DC), Alcohol Dependence (DC), Alcohol Use Disorder (ED) Discharge Date/Time: 02/16/21 13:50
--- NOTE | 2021-02-16 12:48 | MHC.CM.PN ---
pt dcd with follow up at [facility] at 930 for intake to start nalterxone
== END 2021-02-16 13:50 | disposition home or self-care (01) | DRG 280 ==
LOC: HO.ED 02-13 05:38 → HO.EDOVER 02-13 09:35 → HO.IMC 02-13 14:09
PROVIDERS: Admitting Provider Internal Medicine; Emergency Provider Student in an Organized Health Care Education/Training Program; PCP Internal Medicine; Visit Provider Family Medicine
DX: K70.10 Alcoholic hepatitis without ascites (principal); F10.231 Alcohol dependence with withdrawal delirium; D61.818 Other pancytopenia; K52.9 Noninfective gastroenteritis and colitis, unspecified; N39.0 Urinary tract infection, site not specified; R31.0 Gross hematuria; Z20.822 Contact with and (suspected) exposure to COVID-19; E83.42 Hypomagnesemia; E87.6 Hypokalemia; Z79.899 Other long term (current) drug therapy
CPT/HCPCS: 36415; 70450; 74177; 80048; 80053; 81001; 81003; 83690; 83735; 85025; 86140; 86704; 86706; 86803; 87040; 87086; 87340; 87389; 87491; 87591; 87635; 96374; 96375; 99285; J0696; J2060; J2560; J3411; J3475; Q0163; Q9967

== ENCOUNTER 2021-02-18 11:53 | Outpatient (REF) | payer OTHER, SELFPAY ==
[2021-02-18 13:24] LABS: Basophils Absolute Auto 0.1 X10*3/uL (0.0-0.2); Basophils Percent Auto 1.3 % (0-2); Eosinophils Absolute Auto 0.2 X10*3/uL (0.0-0.4); Eosinophils Percent Auto 3.3 % (0-4); Imm Gran Abs Auto 0.01 X10*3/uL (0.00-0.03); Imm Gran Pct Auto 0.2 % (0.0-0.4); Lymphocytes Absolute Auto 1.7 X10*3/uL (1.2-4.9); Lymphocytes Percent Auto 30.6 % (20-40); MANUAL DIFF FLAG SCAN; Mean Corpuscular HGB Conc 33.3 g/dl (31.0-36.0); Mean Corpuscular Hemoglobin 33.4 pg (27.0-33.0); Mean Corpuscular Volume 100.3 fL (80-98); Mean Platelet Volume 10.5 fL (9.4-12.4); Monocytes Absolute Auto 1.2 X10*3/uL (0.1-1.2); Monocytes Percent Auto 22.8 % (2-11); Neutrophils Absolute Auto 2.3 X10*3/uL (2.0-8.3); Neutrophils Percent Auto 41.8 % (45-73); Platelet Count 145 X10*3/uL (160-400); Red Blood Count 3.59 X10*6/uL (4.60-5.80); Red Cell Distribution Width 14.7 % (11.0-16.0); SCAN SMEAR FLAG 1; White Blood Count 5.4 X10*3/uL (4.8-10.8)
[2021-02-18 13:43] LABS: Anion Gap 13 (12-20); Blood Urea Nitrogen 9 mg/dL (9-16); Calcium 8.8 mg/dL (8.4-10.2); Carbon Dioxide 29 mmol/L (22-29); Chloride 97 mmol/L (96-108); Estimated Glomerular Filt Rate > 60; Glucose Random 100 mg/dL (60-115); Magnesium 1.6 mg/dL (1.6-2.6); Sodium 135 mmol/L (135-145)
[2021-02-18 13:50] LABS: Amphetamine Screen Urine Not Detected (Not Detect); Barbiturates, Urine POSITIVE (Not Detect); Benzodiazepines Screen Urine POSITIVE (Not Detect); Cannabinoid Screen Urine Not Detected (Not Detect); Cocaine Screen Urine Not Detected (Not Detect); Opiate Screen Urine Not Detected (Not Detect); Phencyclidine Screen Urine Not Detected (Not Detect)
[2021-02-18 14:32] LABS: SLIDE REVIEW VERIFIED
== END 2021-02-18 11:54 | disposition home or self-care (01) ==
LOC: HO.LAB 11:53
PROVIDERS: Nurse Practitioner Family; Visit Provider Family Medicine
DX: E83.42 Hypomagnesemia (principal); G47.9 Sleep disorder, unspecified; D61.818 Other pancytopenia
CPT/HCPCS: 36415; 80048; 80307; 83735; 85025

== ENCOUNTER → 2021-03-08 15:04 | Outpatient (BNVA) | payer OTHER, SELFPAY | PROVIDERS: Visit Provider Internal Medicine | DX: Z51.81 Encounter for therapeutic drug level monitoring (principal); Z79.899 Other long term (current) drug therapy | CPT/HCPCS: 80305 ==

== ENCOUNTER → 2021-03-12 14:29 | Outpatient (BNVA) | payer OTHER, SELFPAY | PROVIDERS: Visit Provider Internal Medicine | DX: K70.9 Alcoholic liver disease, unspecified (principal); F10.20 Alcohol dependence, uncomplicated; Z51.81 Encounter for therapeutic drug level monitoring; Z79.899 Other long term (current) drug therapy | CPT/HCPCS: 80305 ==

== ENCOUNTER → 2021-03-24 15:50 | Outpatient (BNVA) | payer OTHER, SELFPAY | PROVIDERS: Visit Provider Internal Medicine | DX: F10.20 Alcohol dependence, uncomplicated (principal) | CPT/HCPCS: 80305 ==

== ENCOUNTER 2021-07-05 14:03 | Emergency (ER) | payer OTHER, SELFPAY ==
--- NOTE | ~2021-07-05 | XR_ITS ---
EXAMINATION: XR RIBS, LEFT CLINICAL INFORMATION: Fall, trauma, pain COMPARISON: None TECHNIQUE: Frontal view of the chest and 3 views left ribs are obtained for a total of 4 views. FINDINGS: There is old healed fracture distal left ninth rib. On one view, there is questionable cortical irregularity of the ninth rib just proximal to the costochondral junction. Possibility of acute injury in this area cannot be excluded. Otherwise, there is no visible fracture line or fracture fragment. No bony destructive process. The lungs are clear. There is no pneumothorax or pleural reaction. No infiltrate or effusion. The costophrenic sulci are well-defined. The heart is normal in size. The hilar and mediastinal contours are normal. XR/XR ribs LT min 3V w CXR1V IMPRESSION: 1. Old healed fracture left ninth rib. Questionable cortical irregularity distal ninth rib just proximal to the costochondral junction. Recommend correlation with patient's symptoms and clinical exam 2 confirm or exclude acute injury in this area. 2. Lungs clear. No pneumothorax, pleural reaction, infiltrate, or effusion.
--- NOTE | ~2021-07-05 | CT_ITS ---
EXAMINATION: CT HEAD WITHOUT CONTRAST CLINICAL INFORMATION: Fall COMPARISON: Previous head CT February 2021 TECHNIQUE: Contiguous axial imaging was performed from the skull base to vertex without intravenous administration of contrast. This CT examination was performed using dose optimization techniques as appropriate, variously including the following: *Automated exposure control *Adjustment of mA and/or kV according to patient size (this includes techniques or standardized protocols for targeted exams where dose is matched to indication/reason for exam; i.e. extremities or head) *Use of iterative reconstruction technique DLP: 79 mGy-cm FINDINGS: There is no evidence of acute intracranial hemorrhage or territorial infarction. No abnormal mass effect or midline shift is seen. Caruso to white matter differentiation is well preserved. No extra-axial fluid collections are identified. The ventricles are normal in size. There is no abnormal attenuation within the brain parenchyma. The osseous structures and soft tissues are normal. There is membranous soft tissue thickening seen in the maxillary sinuses. The mastoid air cells and visualized portions of the paranasal sinuses are otherwise clear. CT/CT head/brain wo con IMPRESSION: No acute findings. Mild inflammatory changes in the bilateral maxillary sinuses.
[2021-07-05 14:13] VITALS: BP 113/78; PULSE 96; RESP 16; TEMP 36.9; O2SAT 96; BMI 23.6
[2021-07-05 15:23] VITALS: BP 118/80; PULSE 64; RESP 18; O2SAT 100
--- NOTE | 2021-07-05 16:29 | ED.FALL ---
HPI - Fall General Chief Complaint: Dizziness Stated Complaint: FALL LOC Time Seen by Provider: 07/05/21 16:09 Source: patient Mode of arrival: ambulatory Limitations: no limitations History of Present Illness HPI Narrative: 50-year-old male presents emergency department after falling over. Patient states he landed on his left side onto his elbow onto his ribs. Patient is complaining of left rib pain states he also hit his head he denies chest pain cough or fever. Patient states he does not meet concerned that he is passing out. Patient is not dizzy at this time. He denies nausea vomiting or diarrhea. Patient states he does not eat anything that is the reason why he has this issue and he does get dizzy but did eat this morning but he gets anxious and then vomits. This is a chronic condition for him. MD complaint: fall Onset (ago): day(s) Fall from: standing Related Data Home Medications Medication Instructions Recorded Confirmed chlorhexidine gluconate 0.12 % ml PO 03/02/21 03/30/21 mouthwash Previous Rx's Medication Instructions Recorded ondansetron 4 mg disintegrating 4 mg PO TID PRN 5 Days #10 tab 02/09/21 tablet folic acid 1 mg tablet 1 mg PO DAILY #30 tab 02/16/21 magnesium oxide 400 mg (241.3 mg 800 mg PO BIDPC #120 tab 02/16/21 magnesium) tablet naltrexone 50 mg tablet 50 mg PO DAILY #30 tab 02/16/21 thiamine HCl (vitamin B1) 100 mg 100 mg PO DAILY #30 tab 02/16/21 tablet naltrexone microspheres 380 mg 380 mg IM Q4W 30 Days #1 ea 03/16/21 intramuscular suspension,extended release (Vivitrol) Allergies Allergy/AdvReac Type Severity Reaction Status Date / Time bee pollen [BEE POLLEN] Allergy Severe ANAPHYLAXIS Verified 03/24/21 16:01 Review of Systems Review of Systems: Review of systems: General: Fall Patient denies any fever chills recent illness Musculoskeletal: Denies back pain or body aches or other injuries HEENT: denies headache, runny nose, ear pain Respiratory: denies shortness of breath, cough Cardiovascular: no chest pain or palpitations : denies dysuria, frequency Abdomen: no nausea vomiting denies abdominal pain Extremities: no swelling, no pain Skin: no diaphoresis Yes all other systems are reviewed and are negative PMFSH Past Medical History Medical History Anxiety, generalized Difficulty sleeping Encounter for general adult medical examination with abnormal findings Hypomagnesemia Meningitis spinal Pancytopenia Prehypertension Tinnitus Family History Family History Brother Heart attack Social History Social History Household Members: Spouse Housing: Condominium Do you presently have visiting nurse or other home services: No Alcohol intake: never Patient Tobacco Use Status: Never used Tobacco Use of substances other than those prescribed or required for medical reasons: No Advance Directives: Yes Advance Directives on File: Yes Advance Directives Date on File: 02/17/21 service: No Current occupational status: employed Physical Exam Vital Signs: Vital Signs: Last Vital Signs Temp 98.4 F 07/05/21 14:13 Pulse 64 07/05/21 15:23 Resp 18 07/05/21 15:23 BP 118/80 07/05/21 15:23 Pulse Ox 100 07/05/21 15:23 Body Mass Index 23.6 General: Well-appearing well-nourished in no signs of distress HEENT: Normocephalic atraumatic Neck: No signs of JVD, no masses no tenderness or lymphadenopathy Cardiovascular: Regular rate and rhythm Respiratory: He is left chest wall tender to palpation around T10-T12 Clear to auscultation bilaterally Abdomen: Soft nontender no masses Extremities: Normal pedal pulses no signs of edema Skin: Dry warm no rashes Back: No tenderness full ROM MDM - Fall MDM Narrative Medical decision making narrative: Concern for rib fractures patient with syncope will get the patient for x-ray of the ribs CT was negative. Discharge Plan Discharge Clinical Impression: Fall, Left-sided chest wall pain, Fracture of rib of left side Patient Disposition: Home, Self-Care Instructions: Thoracic Pain (ED), Fall Prevention (ED) Additional Instructions: Please call follow-up with her doctor please use the incentive spirometer 20 times per hour while awake. Prescriptions: No Action ondansetron 4 mg tablet,disintegrating 4 mg PO TID PRN (Reason: nausea and vomiting) 5 Days Qty: 10 RF: 0 magnesium oxide 400 mg (241.3 mg magnesium) Tablet 800 mg PO BIDPC Qty: 120 RF: 0 thiamine HCl (vitamin B1) 100 mg tablet 100 mg PO DAILY Qty: 30 RF: 0 folic acid 1 mg tablet 1 mg PO DAILY Qty: 30 RF: 0 naltrexone 50 mg tablet 50 mg PO DAILY Qty: 30 RF: 0 chlorhexidine gluconate 0.12 % mouthwash PO RF: 0 Vivitrol 380 mg suspension,extended rel recon 380 mg IM Q4W 30 Days Qty: 1 RF: 3
== END 2021-07-05 17:35 | disposition home or self-care (01) ==
PROVIDERS: Emergency Provider Student in an Organized Health Care Education/Training Program; PCP Internal Medicine
DX: S22.42XA Multiple fractures of ribs, left side, initial encounter for closed fracture (principal); R07.81 Pleurodynia; G44.309 Post-traumatic headache, unspecified, not intractable; X58.XXXA Exposure to other specified factors, initial encounter; Y93.9 Activity, unspecified; Y92.9 Unspecified place or not applicable; Y99.9 Unspecified external cause status; Z79.899 Other long term (current) drug therapy
CPT/HCPCS: 70450; 71101; 99284

== ENCOUNTER 2021-09-20 09:25 | Emergency (ER) | payer OTHER, SELFPAY ==
--- NOTE | 2021-09-20 09:36 | ECG_ITS ---
Test Reason : SYNCOPE Blood Pressure : / mmHG Vent. Rate : 075 BPM Atrial Rate : 075 BPM P-R Int : 188 ms QRS Dur : 098 ms QT Int : 414 ms P-R-T Axes : 061 004 050 degrees QTc Int : 462 ms Normal sinus rhythm Nonspecific ST abnormality Abnormal ECG When compared with ECG of 09-FEB-2021 05:10, Criteria for Septal infarct are no longer Present Nonspecific T wave abnormality now evident in Lateral leads Referred By: Jacob Howard Electronically Signed By:MAURA GUO MD
[2021-09-20 09:49] VITALS: BP 117/61; BP 121/81; PULSE 73; RESP 16; TEMP 36.5; O2SAT 100; BMI 23.4
[2021-09-20 10:04] VITALS: O2SAT 98
[2021-09-20 10:04] LABS: Glucose, Whole Blood 160 mg/dL (60-115)
--- NOTE | 2021-09-20 10:14 | ED_ITS ---
HPI - Syncope General Chief Complaint: Syncope Stated Complaint: SYNCOPE Time Seen by Provider: 09/20/21 09:35 Source: patient Mode of arrival: EMS Limitations: no limitations History of Present Illness HPI narrative: This is a 50 years old male presented to the emergency department via ambulance after a syncopal episode of work. Denies any chest pain shortness of breath. He states that he has been going through a divorce is no been eating and drinking well he has been having a lot of anxiety and has no been sleeping well complaint: collapsed Onset (ago): hour(s) (1) Prodromal symptoms: lightheaded Witnessed: Yes - by Bystander Context: other (Seating) Injuries sustained associated with event: none Current symptoms: none Related Data Previous Rx's Medication Instructions Recorded thiamine HCl (vitamin B1) 100 mg 100 mg PO DAILY #30 tab 02/16/21 tablet Allergies Allergy/AdvReac Type Severity Reaction Status Date / Time bee pollen [BEE POLLEN] Allergy Severe ANAPHYLAXIS Verified 07/13/21 08:31 Review of Systems Review of Systems: Yes all other systems are reviewed and are negative Constitutional: Constitutional: Reports no additional constitutional complaints Cardiovascular: Cardiovascular: Reports no additional cardiovascular complaints, Denies chest pain, Denies chest pain at rest, Denies chest pain with activity, Denies Epigastric Pain and Denies epigastric discomfort Respiratory: Respiratory: Reports no additional respiratory complaints and Reports no additional respiratory complaints Musculoskeletal: Musculoskeletal: Reports no additional musculoskeletal complaints PMFSH Past Medical History Attestation statement: The following information was validated with the patient. Medical History Anxiety, generalized Difficulty sleeping Encounter for general adult medical examination with abnormal findings Hypomagnesemia Meningitis spinal Pancytopenia Prehypertension Tinnitus Family History Family History Brother Heart attack Other Substance use disorder Social History Social History Household Members: Spouse Housing: Condominium Do you presently have visiting nurse or other home services: No Alcohol intake: never Patient Tobacco Use Status: Former Tobacco user Quit Date: 1990 e-Cigarette/Vaping Use: Currently Using Advance Directives: Yes Advance Directives on File: Yes Advance Directives Date on File: 02/17/21 service: No Current occupational status: employed 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, [employer] Current occupational exposures/hazards: No Physical Exam Vital Signs: Vital Signs: Last Vital Signs Temp 97.7 F 09/20/21 09:49 Pulse 70 09/20/21 11:43 Resp 18 09/20/21 11:43 BP 139/83 09/20/21 11:43 Pulse Ox 97 09/20/21 11:43 Body Mass Index 23.4 Const: General: cooperative and comfortable HENMT: Head: Yes normal to inspection Face and sinus: Yes normal facial exam Mouth: Normal oral and palatal mucosa present Neck: Neck: Yes normal visual inspection and Yes full ROM Chest: Chest palpation & inspection: normal inspection of the chest Resp: Effort & Inspection: normal respiratory effort Auscultation: clear to auscultation bilaterally Cardio: Jugular venous distension: no JVD Rate: regular rate Rhythm: regular rhythm GI: Inspection: Yes normal to inspection Palpation (GI): Soft to palpation, not firm, nontender and no guarding Skin: General skin exam: no rashes or lesions noted, elasticity normal and turgor normal Rashes: no rashes Course Reevaluation(s) Reevaluation #1: Patient remain hemodynamically stable he was monitored in the emergency department for about 2-1/2 hour he remained in normal sinus rhythm , labs showed a normal troponin his alcohol level was elevated. Patient states that the was drinking last night and they does not drink every day and he does not need hel in stopping drinking Reevaluation #2: Patient remained hemodynamically stable he he is asymptomatic at this point, on the electronic device monitor remained in sinus rhythm he did have a syncopal episode ,this could be most likely vasovagal (patient states that he is not eating and drinking well because he has been going through a stressful situation/divorse/also alcohol was elevated in the blood) at this point will discharge the patient home; patient is comfortable with the plan he will follow- up with his primary care physician MDM - Syncope Lab Data Result diagrams: 09/20/21 10:17 09/20/21 10:17 Labs: Lab Results 09/20/21 09/20/21 09/20/21 Range/Units 09:51 10:17 10:17 WBC 4.4 L (4.8-10.8) X10*3/uL RBC 4.35 L (4.60-5.80) X10*6/uL Hgb 14.7 (14.0-18.0) g/dl Hct 43.0 (42.0-52.0) % MCV 98.9 H (80.0-98.0) fL MCH 33.8 H (27.0-33.0) pg MCHC 34.2 (31.0-36.0) g/dl RDW 14.3 (11.0-16.0) % Plt Count 75 L (160-400) X10*3/uL MPV 10.3 (9.4-12.4) fL Immature Gran % (Auto) 0.7 H (0.0-0.4) % Neut % (Auto) 48.3 (45-73) % Lymph % (Auto) 33.7 (20-40) % [place] % (Auto) 14.5 H (2-11) % Eos % (Auto) 1.4 (0-4) % Baso % (Auto) 1.4 (0-2) % Lymph # (Auto) 1.5 (1.2-4.9) X10*3/uL [place] # (Auto) 0.6 (0.1-1.2) X10*3/uL Eos # (Auto) 0.1 (0.0-0.4) X10*3/uL Baso # (Auto) 0.1 (0.0-0.2) X10*3/uL Abs Immat Gran (auto) 0.03 (0.00-0.03) X10*3/uL Absolute Neuts (auto) 2.1 (2.0-8.3) x10*3/uL Absolute Nucleated RBC 0.000 (0.0-0.012) X10*3/uL Nucleated RBC % (auto) 0.0 (0.0-0.2) /100WBC Sodium (135-145) mmol/L Potassium (3.3-5.1) mmol/L Chloride (96-108) mmol/L Carbon Dioxide (22-29) mmol/L Anion Gap (12-20) BUN (9-16) mg/dL Creatinine (0.5-1.4) mg/dL Estim Creat Clear Calc Estimated GFR POC Glucose 160 H (60-115) mg/dL Random Glucose (60-115) mg/dL Calcium (8.4-10.2) mg/dL Total Bilirubin (0.0-1.0) mg/dL AST (5-37) U/L ALT (0-40) U/L Alkaline Phosphatase (39-117) U/L Troponin I High Sens (<3.5-35.0) ng/L Total Protein (6.5-8.0) g/dL Albumin (3.5-5.0) g/dL Ethyl Alcohol 283 mg/dL 09/20/21 09/20/21 Range/Units 10:17 10:17 WBC (4.8-10.8) X10*3/uL RBC (4.60-5.80) X10*6/uL Hgb (14.0-18.0) g/dl Hct (42.0-52.0) % MCV (80.0-98.0) fL MCH (27.0-33.0) pg MCHC (31.0-36.0) g/dl RDW (11.0-16.0) % Plt Count (160-400) X10*3/uL MPV (9.4-12.4) fL Immature Gran % (Auto) (0.0-0.4) % Neut % (Auto) (45-73) % Lymph % (Auto) (20-40) % [place] % (Auto) (2-11) % Eos % (Auto) (0-4) % Baso % (Auto) (0-2) % Lymph # (Auto) (1.2-4.9) X10*3/uL [place] # (Auto) (0.1-1.2) X10*3/uL Eos # (Auto) (0.0-0.4) X10*3/uL Baso # (Auto) (0.0-0.2) X10*3/uL Abs Immat Gran (auto) (0.00-0.03) X10*3/uL Absolute Neuts (auto) (2.0-8.3) x10*3/uL Absolute Nucleated RBC (0.0-0.012) X10*3/uL Nucleated RBC % (auto) (0.0-0.2) /100WBC Sodium 142 (135-145) mmol/L Potassium 3.1 L D (3.3-5.1) mmol/L Chloride 98 (96-108) mmol/L Carbon Dioxide 28 (22-29) mmol/L Anion Gap 19 (12-20) BUN 4 L D (9-16) mg/dL Creatinine 1.06 (0.5-1.4) mg/dL Estim Creat Clear Calc 86.0 Estimated GFR > 60 POC Glucose (60-115) mg/dL Random Glucose 164 H D (60-115) mg/dL Calcium 9.1 (8.4-10.2) mg/dL Total Bilirubin 2.0 H (0.0-1.0) mg/dL AST 170 H (5-37) U/L ALT 46 H (0-40) U/L Alkaline Phosphatase 134 H D (39-117) U/L Troponin I High Sens < 3.5 (<3.5-35.0) ng/L Total Protein 8.4 H D (6.5-8.0) g/dL Albumin 3.5 D (3.5-5.0) g/dL Ethyl Alcohol mg/dL ECG Data Attestation: I personally reviewed and interpreted this ECG as follows: ECG interpretation date: 09/20/21 ECG interpretation time: 10:18 Pacemaker model: EKG shows a normal sinus rhythm a rate is 75 ST-T isoelectric Discharge Plan Discharge Clinical Impression: Syncope, Vasovagal syncope Patient Disposition: Home, Self-Care Instructions: Syncope (ED) Prescriptions: No Action thiamine HCl (vitamin B1) 100 mg tablet 100 mg PO DAILY Qty: 30 RF: 0
[2021-09-20] MEDS: 0.9 % Sodium Chloride 1,000 ML 999 ML IVCONT (10:20)
[2021-09-20] MEDS: LORazepam 1 MG TABLET PO (10:22)
[2021-09-20 10:29] LABS: Eosinophils Absolute Auto 0.1 X10*3/uL (0.0-0.4); Eosinophils Percent Auto 1.4 % (0-4); Monocytes Absolute Auto 0.6 X10*3/uL (0.1-1.2); Monocytes Percent Auto 14.5 % (2-11)
[2021-09-20 10:31] LABS: Basophils Absolute Auto 0.1 X10*3/uL (0.0-0.2); Basophils Percent Auto 1.4 % (0-2); Hemoglobin 14.7 g/dl (14.0-18.0); Imm Gran Abs Auto 0.03 X10*3/uL (0.00-0.03); Imm Gran Pct Auto 0.7 % (0.0-0.4); Lymphocytes Absolute Auto 1.5 X10*3/uL (1.2-4.9); Lymphocytes Percent Auto 33.7 % (20-40); Mean Corpuscular HGB Conc 34.2 g/dl (31.0-36.0); Mean Corpuscular Hemoglobin 33.8 pg (27.0-33.0); Mean Corpuscular Volume 98.9 fL (80.0-98.0); Mean Platelet Volume 10.3 fL (9.4-12.4); Neutrophils Absolute Auto 2.1 x10*3/uL (2.0-8.3); Neutrophils Percent Auto 48.3 % (45-73); Red Blood Count 4.35 X10*6/uL (4.60-5.80); Red Cell Distribution Width 14.3 % (11.0-16.0); White Blood Count 4.4 X10*3/uL (4.8-10.8)
[2021-09-20 10:35] LABS: Platelet Count 75 X10*3/uL (160-400)
[2021-09-20 10:40] LABS: Ethanol 283 mg/dL
[2021-09-20 10:46] LABS: Alanine Aminotransferase 46 U/L (0-40); Albumin Level 3.5 g/dL (3.5-5.0); Alkaline Phosphatase 134 U/L (39-117); Anion Gap 19 (12-20); Aspartate Amino Transferase 170 U/L (5-37); Blood Urea Nitrogen 4 mg/dL (9-16); Calcium 9.1 mg/dL (8.4-10.2); Carbon Dioxide 28 mmol/L (22-29); Chloride 98 mmol/L (96-108); Estimated Glomerular Filt Rate > 60; Glucose Random 164 mg/dL (60-115); Potassium 3.1 mmol/L (3.3-5.1); Sodium 142 mmol/L (135-145); Total Protein 8.4 g/dL (6.5-8.0)
[2021-09-20 10:51] LABS: Troponin-I High Sensitivity < 3.5 ng/L (<3.5-35.0)
[2021-09-20 11:43] VITALS: BP 139/83; PULSE 70; RESP 18; O2SAT 97
--- NOTE | 2021-09-20 11:44 | PC.NURSE ---
pt is currently resting with eyes shut, reports feeling better, vs stable, normal sinus on the monitor
== END 2021-09-20 13:48 | disposition home or self-care (01) ==
PROVIDERS: Emergency Provider Emergency Medicine
DX: R55 Syncope and collapse (principal)
CPT/HCPCS: 36415; 80053; 82077; 82947; 84484; 85025; 93005; 96360; 99284; 99285

== ENCOUNTER 2021-10-13 09:01 | Emergency (ER) | payer OTHER, SELFPAY ==
[2021-10-13 09:56] VITALS: BP 146/83; PULSE 96; RESP 16; TEMP 36.6; O2SAT 99; BMI 24.3
--- NOTE | 2021-10-13 13:06 | ED_ITS ---
HPI - General Adult General Chief complaint: General Medical Stated complaint: hemorrhoid pain Time Seen by Provider: 10/13/21 11:05 Source: patient Mode of arrival: ambulatory Limitations: no limitations History of Present Illness HPI narrative: 50-year-old male who presents emergency department for evaluation of rectal pain. Patient's has hemorrhoids. He states that he had a painful, hard, bowel movement on Monday and since that time he has been having rectal pain. He states the pain is a constant, burning sensation which is worse if he sits on a hard surface or if he tries to move his bowels. The pain is 8/10. He has been using preparation H cream on his rectal area with no relief his pain. He has noted occasional bright red blood per rectum, no blood clots. He denies lightheadedness, dizziness, chest pain, shortness of breath, dyspnea on exertion, fatigue. Related Data Previous Rx's Medication Instructions Recorded thiamine HCl (vitamin B1) 100 mg 100 mg PO DAILY #30 tab 02/16/21 tablet Allergies Allergy/AdvReac Type Severity Reaction Status Date / Time bee pollen [BEE POLLEN] Allergy Severe ANAPHYLAXIS Verified 07/13/21 08:31 Review of Systems Review of Systems: Yes all other systems are reviewed and are negative PMFSH Past Medical History [facility] Narrative: Social history: I did review this history below, the patient denies tobacco use but states that he is a former tobacco user. The patient states he does drink alcohol and drinks too much but cannot quantify how much he drinks a day. He denies drug use. Medical History Anxiety, generalized Difficulty sleeping Encounter for general adult medical examination with abnormal findings Hypomagnesemia Meningitis spinal Pancytopenia Prehypertension Tinnitus Family History Family History Brother Heart attack Other Substance use disorder Social History Social History Household Members: Spouse Housing: Condominium Do you presently have visiting nurse or other home services: No Alcohol intake: never Patient Tobacco Use Status: Former Tobacco user Quit Date: 1990 e-Cigarette/Vaping Use: Currently Using Advance Directives Date on File: 02/17/21 service: No Current occupational status: employed 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 HENMT: Head: Yes normal to inspection, Yes normocephalic and Yes atraumatic Ears: external ears normal General nose exam: Normal external nose present Face and sinus: Yes normal facial exam Mouth: Normal oral and palatal mucosa present Throat: Yes posterior oropharynx normal Eyes: General: appearance normal, both eyes and all related structures Pupils: Equal, round and reactive pupils present Neck: Neck: Yes normal visual inspection, Yes no lymphadenopathy, Yes trachea midline and Yes supple Chest: Chest palpation & inspection: normal inspection of the chest and normal palpation of entire chest wall Resp: Effort & Inspection: normal respiratory effort and able to speak in complete sentences Auscultation: clear to auscultation bilaterally Cardio: Rate: regular rate Rhythm: regular rhythm Heart sounds: S1 normal heart sound present, S2 normal heart sound present and no murmurs GI: Other: Rectal exam: There were no anal fissures or tears noted, he has no palpable masses around the rectal area, there are no external hemorrhoids noted, digital exam revealed no internal masses or hemorrhoids that I can palpate, he does have brownish red stool which was Hemoccult positive. Inspection: Yes normal to inspection Palpation (GI): Soft to palpation, nontender and no guarding Auscultation: normal bowel sounds : General: Yes no CVA tenderness Back/Spine/Pelvis: Back: no CVA tenderness Skin: General skin exam: no rashes or lesions noted Neuro: Cranial nerves: Yes CN's II-XII intact bilaterally and Yes Equal, round and reactive pupils present Cognition (Neuro): normal cognition Motor exam (neuro): 5/5 motor strength present throughout Extrem: General: Yes normal to inspection Psych: Appearance: grossly normal Speech and movement: Normal speech and movement present Affect: normal affect Attitude: cooperative Thought process: Normal thought process present Thought content: Normal thought content present Course Course Course Narrative: 50-year-old male who presents emergency department for evaluation of rectal pain and rectal bleeding for 3-4 days after having a a hard painful bowel movement. Patient states he does have a history of hemorrhoids. Examination did not reveal any external hemorrhoids, fissures or tears in the rectal area, no rectal masses. The digital exam did reveal a reddish stool which was Hemoccult positive. I did not feel any rectal masses or and internal hemorrhoids that I could palpate on digital exam. Patient's presentation is consistent with internal hemorrhoids with rectal bleeding. Patient will be treated with [id number] medications including preparation H suppositories, preparation H cream, Colace and Metamucil. He is advised follow-up with his PCP for referral to GI noted also give him the name of her on-call GI specialist. Discharge Plan Discharge Clinical Impression: Rectal bleed, Bleeding hemorrhoids Patient Disposition: Home, Self-Care Instructions: Hemorrhoids (ED), Rectal Bleeding (ED) Additional Instructions: On your examination, I do not see any external hemorrhoids, tears in the rectal area or evidence of infections in the rectal area. Your digital rectal exam did not reveal any masses or internal hemorrhoids that I could feel with my finger. Your symptoms are consistent with an internal hemorrhoid that is probably inflamed and irritated from constipation and hard bowel movements. Use preparation H suppositories twice a day for 2 weeks and 1 suppository after each bowel movement. The suppositories coat the inside of a rectum and help prevent injury from hard bowel movements. Use preparation H cream with hydrocortisone, apply this to the outside of your rectal area twice a day and after each bowel movement Take Colace stool softeners, 1 pill twice a day for 2 weeks. Take 1 tsp of Metamucil in 8 oz of water twice a day for 2 weeks. This is a fiber supplement and will help with constipation. You should follow-up with your doctor for re-evaluation and for referral to a professional athletes coach. You can also call our gastrologist on-call to see if they can follow you up in 2 weeks for re-evaluation. Follow-up with your doctor in 2 days. Please return to the emergency department if your symptoms get worse or if you develop any symptoms that are concerning to you. Prescriptions: No Action thiamine HCl (vitamin B1) 100 mg tablet 100 mg PO DAILY Qty: 30 RF: 0
[2021-10-13 13:31] VITALS: BP 149/87; PULSE 108; RESP 18; O2SAT 96
== END 2021-10-13 13:36 | disposition home or self-care (01) ==
LOC: HO.ED 13:17
PROVIDERS: Emergency Provider Emergency Medicine Emergency Medical Services
DX: K64.9 Unspecified hemorrhoids (principal)
CPT/HCPCS: 99284